=== PATIENT | female | born 1935 | race Hispanic/Latino ===

== ENCOUNTER 2020-01-09 18:32 | Inpatient (IN) | payer MEDICARE, OTHER ==
--- OUTSIDE RECORDS SUMMARY | 2020-01-09 18:35 | XMS REPORT | Continuity of Care Document ---
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, insufficiency , PA Coronary Active Problem 12/24/2017 Shaji atherosclerosis of Priyank contreras, kletsel dehe wintun coronary , PA artery Coronary Active Diagnosis 12/24/2017 Shaji angioplasty status Priyank contreras MD, PA CHF, chronic Active Problem 12/24/2017 Shaji diastolic MD Barry, PA 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 r infarction MD Barry, PA Abnormal ECG Active Problem 12/24/2017 Shaji Reddy MD, PA CAD without angina Active Problem 12/24/2017 Shaji Reddy MD, PA Sick sinus syndrome Active Diagnosis 12/24/2017 Shaji Reddy MD, PA CHF, chronic Active Diagnosis 12/24/2017 Shaji systolic & Barry, diastolic , PA 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 without Madeline an, heart failure , PA Other specified Active Problem 12/24/2017 Naw ar cardiac Barry, dysrhythmias , PA Chronic kidney Active Problem 12/24/2017 Mamtawa r disease, Barry, unspecified , PA Chronic kidney Active Problem 12/24/2017 Nawa r disease, Stage III Priyank contreras (moderate) , PA Postprocedural PCI Active Problem 12/24/2017 Shaji status MD Barry, PA Old myocardial Active Problem 12/24/2017 Mam[place] r infarction MD Barry, PA Benign hypertensive Active Problem 12/24/2017 Shaji heart disease Barry , without heart , PA failure Mixed Active Problem 12/24/2017 Shaji hyperlipidemia Tim giles MD, PA Pulmonary Active Diagnosis 12/24/2017 Shaji hypertension, Barry , unspecified MD PA Hypertensive heart Active Diagnosis 12/24/2017 Shaji and chronic kidney T ben, disease with heart M Paula PA failure and stage 1 through stage 4 chronic kidney disease, or unspecified chronic kidney disease Paroxysmal atrial Active Diagnosis 12/24/2017 N awar fibrillation MD Barry PA Atherosclerotic Active Diagnosis 12/24/2017 Naw ar heart disease of César diehl, kletsel dehe wintun coronary MD PA artery with unspecified angina pectoris Body mass index Active Problem 12/24/2017 Naw ar (BMI) 30.0-30.9, César diehl, adult , PA Obesity, Active Problem 12/24/2017 Shaji unspecified MD Barry, PA Back pain Active Problem 06/29/2015 eCW: Kaisen Fang CHF (congestive Active Problem 06/29/2015 eCW : heart failure) Kaise n Fang Dementia Active Problem 06/29/2015 eCW: Kaisen Fang Pulmonary Active Problem 06/29/2015 eCW: hypertension Kaisen Fang Hypertension with Active Problem 06/29/2015 e CW: renal disease Kaisen Fang Systolic CHF with Active Problem 06/29/2015 e CW: reduced left Kaisen ventricular Fang function, NYHA class 2 Depression with Active Problem 06/29/2015 eCW : anxiety Kaisen Fang CAD (coronary Active Problem 06/29/2015 eCW: artery disease) Naveen en Fang CKD (chronic kidney Active Problem 06/29/2015 eCW: disease) stage 3, Ka isen GFR 30-59 ml/min Fan g Barretts esophagus Active Problem 06/29/2015 eCW: Kaisen Fang Bronchitis Active Diagnosis 06/29/2015 eCW: Kaisen Fang Medications Medication Details Route Status Patient Ordering Order Source Instructions Provider Date Aspirin 1 tablet Orally Active 81 MG Orally [facility] Shaji Once a day 018 MD Barry PA Xarelto 1 tablet Orally Active 15 MG Orally [facility] Shaji with food Once a day 018 MD Barry, PA HydrALAZINE HCl 1 tablet Orally No 10 mg Orally [facility] Na war Longer three times a 016 Barry Active day (tid) CT [facility] Promethazine-Cod 10 ml as Orally Active 6.25-10 MG/5ML Fang eCW: eine needed Orally every 6 016 Kaisen hrs [facility] HydrALAZINE HCl 1 tablet Orally Active 25 MG Orally [facility] eC W: Twice a day [facility] Levaquin 1 tablet Orally Active 500 mg Orally [facility] eCW: Once a day [facility] Albuterol-Ipratr 3 ml Inhalation Active 2.5-0.5 MG/3ML [facility] 06/27 eCW: opium Inhalation 016 [facility] Four times a [facility] day for wheezing Aricept 1 tablet Orally Active 10 mg Orally [facility] eCW: Once a day 014 [facility] Jupiter 1 tablet Orally Active 10-325 MG [facility] eCW: as needed Orally every 6 014 [facility] hrs [facility] Clopidogrel 1 tablet Orally Active 75 mg Orally [facility] eCW: Bisulfate daily [facility] Potassium 1 tablet Orally Active 8 MEQ Orally [facility] eCW: Chloride daily [facility] Lasix 1 tablet Orally Active 20 mg Orally [facility] eCW: Once a day [facility] Os-Tai 500 + D 1 tablet Orally Active 500-400 [facility] eCW: with meals MG-UNIT Orally [facility] Twice a day [facility] Aspirin 1 tablet Orally Active 81 MG Orally [facility] Shaji Once a day MD Barry, PA Robaxin-750 1 tablet Orally Active 750 MG Orally [facility] eCW: every 4 hrs Ifeanyi Meeks MD, PA Pantoprazole 1 tablet Orally Active 40 MG Orally [facility] eCW: Sodium Once a day Ifeanyi Meeks ar MD Barry, PA Potassium 1 capsule Orally Active 8 MEQ Orally [facility] Shaji Chloride daily MD Barry, PA Lisinopril 1 tablet Orally Active 2.5 MG [facility] Once a day MD Barry, PA Aricept 1 tablet Orally Active 10 MG Orally [facility] Shaji at bedtime Once a day MD Barry, PA Plavix 1 tablet Orally Active 75 MG Orally [facility] Shaji Once a day MD Barry, PA Clonazepam 1 tablet Orally Active 0.5 MG Orally [facility] Shaji Twice a day MD Reddy PA Nitrostat 1 tablet Sublingual Active 0.4 MG [facility] Shaji Sublingual as sarah Reddy MD, PA Mirtazapine 1 tablet Orally Active 15 MG Orally [facility] Shaji Once a day MD Reddy PA Jupiter 1 tablet Orally Active 10-325 MG Tayyan Shaji as needed Orally every 6 Tayyan, hrs CT [facility] Lasix 1 tablet Orally Active 20 MG Orally [facility] Shaji Once a day MD Reddy PA Atorvastatin 1 tablet Orally Active 40 MG Orally [facility] Shaji Calcium Once a day MD Reddy PA Nitroglycerin not Sublingual Active 0.4 MG Tayyan Shaji defined Sublingual MD Reddy PA Nitroglycerin not Sublingual Active 0.4 MG Tayyan Shaji defined Sublingual MD Reddy PA Atorvastatin 1 tablet Orally Active 40 MG Orally [facility]yan Shaji Calcium Once a day MD Reddy PA Lasix 1 tablet Orally Active 40 mg Orally Tayyan Shaji twice a day Barry (bid) CT [facility] Clopidogrel 1 tablet Orally Active 75 MG Orally Tayyan Shaji Bisulfate Once a day MD Redyd PA Pantoprazole 1 tablet Orally Active 40 MG Orally [facility] Sodium Once a day MD Reddy PA Methocarbamol 1 tablet Orally Active 750 MG Orally Tayyan Naw ar every 4 hrs MD Reddy PA Aspirin 1 tablet Orally Active 81 MG Orally Tayyan Shaji Once a day MD Reddy PA Acetaminophen-Co 1 tablet Orally Active 300-30 MG Tayyan Nawa r deine #3 as needed Orally every 6 Barry , hrs CT [facility] Lisinopril 1 tablet Orally Active 20 MG Orally Tayyan Shaji Once a day MD Reddy PA Donezepil HCl-10 one tablet orally Active 10 mg orally q Tayyan Shaji mg day MD Reddy PA Mirtazapine 1 tablet Orally Active 15 MG Orally [facility] Shaji Once a day MD Reddy PA Clonazepam 1 tablet Orally Active 0.5 MG Orally [facility] Shaji Twice a day MD Reddy PA Jupiter 1 tablet Orally Active 10-325 MG Tayyan Shaji as needed Orally every 6 Tayfazal, hrs CT [facility] Nitroglycerin Unknown Sublingual Active 0.4 MG Tayyan Shaji Sublingual MD Reddy PA HydrALAZINE HCl 1 tablet by mouth No 10 mg by mouth Fang eCW: Longer three times a Kaisen Active day (tid) Fang Aspirin 1 tablet Orally Active 81 MG Orally Fang eCW: Once a day Kaisen Fang Womens Multi Unknown NA Active Fang eCW: Vitamin & Kaisen Mineral Fang Nitrostat DISSOLVE NA Active 0.4MG Fang eCW: ONE TABLET Kaisen UNDER THE Fang TONGUE AND NEEDED EVERY 5 MINUTES NEEDED Clonazepam 1 tablet Orally Active 1 MG Orally Fang eCW: twice a day Kaisen (bid) Fang Mirtazapine TAKE 1 NA Active 15MG Fang eCW: TABLET Kaisen BEFORE Fang BEDTIME IN THE EVENING ONCE EVERY NIGHT FOR 30 DAYS Atorvastatin 1 tablet by mouth Active 40MG by mouth Fang eCW : Calcium in the Kaisen evening. Fang Allergies, Adverse Reactions, Alerts Substance Category Reaction Severity Reaction Status Date Comments S ource type Reported Beta estrellita Adverse bradycardia Adverse Active eCW: Reaction Reaction 6 Kaisen Fang Lisinopril Adverse renal side Adverse Active eCW: Reaction effects Reaction 6 Kaisen Fang clononidine Adverse sleepy Adverse Active eC W: Reaction Reaction 6 Kaisen Fang NSAID Adverse stomach Adverse Active eCW: Reaction upset Reaction 6 Kaisen Fang N.K.D.A. Adverse Info Not Adverse Active Nawa r Reaction Available Reaction 6 Madeline patterson MD, PA Tylenol/Codei Adverse Info Not Adverse Active Shaji emmanuel #3 Reaction Available Reaction 8 Madeline patterson MD, PA Immunizations No Data Provided for This Section Results No Data Provided for This Section Pathology Reports No Data Provided for This Section Diagnostic Reports No Data Provided for This Section Consultation Notes No Data Provided for This Section Discharge Summaries No Data Provided for This Section History and Physicals No Data Provided for This Section Vital Signs Vital Sign Value Date Comments Source Weight 146 12/22/2017 Shaji Reddy MD, PA Height 61 12/22/2017 Shaji Reddy MD, PA Heart Rate 77 12/22/2017 Shaji Reddy MD, PA Diastolic (mm Hg) 68 12/22/2017 Shaji patterson MD, PA Systolic (mm Hg) 132 12/22/2017 Shaji giles MD, PA Weight 162 08/05/2017 Shaji Reddy MD, PA Heart Rate 96 08/05/2017 Shaji Reddy MD, PA Diastolic (mm Hg) 80 08/05/2017 Shaji patterson MD, PA Systolic (mm Hg) 145 08/05/2017 Shaji giles MD, PA Weight 161 06/28/2017 Shaji Reddy MD, PA Heart Rate 75 06/28/2017 Shaji Reddy MD, PA Diastolic (mm Hg) 80 06/28/2017 Shaji patterson MD, PA Systolic (mm Hg) 140 06/28/2017 Shaji giles MD, PA Weight 156 01/28/2017 Shaji Reddy MD, PA Heart Rate 68 01/28/2017 Shaji Reddy MD, PA Diastolic (mm Hg) 70 01/28/2017 Shaji patterson MD, PA Systolic (mm Hg) 130 01/28/2017 Shaji giles MD, PA Weight 147 07/22/2016 Shaji Reddy MD, PA Heart Rate 52 07/22/2016 Shaji Reddy MD, PA Diastolic (mm Hg) 80 07/22/2016 Shaji patterson MD, PA Systolic (mm Hg) 130 07/22/2016 Shaji giles MD, PA Weight 160 01/23/2016 Shaji Reddy MD, PA Heart Rate 54 01/23/2016 Shaji Reddy MD, PA Diastolic (mm Hg) 65 01/23/2016 Shaji patterson MD, PA Systolic (mm Hg) 120 01/23/2016 Shaji giles MD, PA Weight 150 07/29/2015 Shaji Reddy MD, PA Heart Rate 53 07/29/2015 Shaji Reddy MD, PA Diastolic (mm Hg) 50 07/29/2015 Shaji patterson MD, PA Systolic (mm Hg) 108 07/29/2015 Shaji giles MD, PA Weight 157.5 06/27/2015 eCW: Patricio Turk g Height 59 06/27/2015 eCW: Patricio nolasco Temperature Oral (F) 98.5 F 06/27/2015 eCW: Abril Carrasco Heart Rate 64 06/27/2015 eCW: Patricio nolasco Diastolic (mm Hg) 74 06/27/2015 eCW: Deng Carrasco Systolic (mm Hg) 153 06/27/2015 eCW: Patricio Carrasco Respitory Rate 20 06/27/2015 eCW: Patricio leal Encounters Location Location Encounter Encounter Reason Attending [facility] Stat Source Details Type Number For Provider Date Date Visit Patricio Unknown [id number] 10/27 10/27 Kalina Carrasco MD [id number] /2013 César diehl [id number] , P A c9e Patricio Unknown [id number] 10/27 10/27 Kalina Carrasco MD [id number] /2013 César diehl [id number] , P A 92e Patricio Unknown [id number] 10/27 10/27 eCW: MD Luna eb-[id number]-[id number] /2013 Garret sen [id number] Luna 920 Patricio Unknown [id number] 10/27 10/27 Kalina Carrasco MD [id number] César diehl [id number] , P A 0ae Patricio Follow-up [id number] 11/10 11/10 Mamta Carrasco MD for mutiple 65-3l75-86b /2013 Barry, problems c-[id number] , PA d37 Patricio Follow-up [id number] 11/10 11/10 Mamta Carrasco MD for mutiple 41-6bh8-fqg /2013 Barry, problems 1-h17mbq36p , PA 6e4 Patricio Follow-up [id number] 11/10 11/10 eC W: MD Luna for mutiple 56-1ni5-325 /2013 Abrilisen problems 2-ys500ff38 Burke nolasco 68a Patricio Follow-up [id number] 11/10 11/10 Mamta Carrasco MD for mutiple f8-4dce-942 /2013 Barry, problems d-6ajv482x3 , PA 201 Patricio Follow-up [id number] 01/03 01/03 Mamta Carrasco MD for mutiple 2d-2w11-x33 /2013 Tayfazal, problems 0-hb838y077 , PA 0f4 Kaisen Follow-up [id number] 01/03 01/03 Mamta Carrasco MD for mutiple 92-8m61-99t /2013 Tayfazal, problems 5-q44prlimb , PA 0b1 Kaisen Follow-up [id number] 01/03 01/03 eC W: MD Luna for mutiple ab-4bdc-8f7 /2013 Kaisen problems 2-328orwq59 Burke nolasco dad Kaisen Follow-up [id number] 01/03 01/03 Mamta Carrasco MD for mutiple ec-1vi5-42q /2013 Barry, problems 5-93gmv0j14 , PA b80 Kaisen Follow-up [id number] 03/06 03/06 Mamta Carrasco MD for mutiple ad-6t4w-w75 Barry, problems b-k73e50689 , PA 08e Kaisen Follow-up [id number] 03/06 03/06 Mamta Carrasco MD for mutiple 60-9mv5-7b2 Barry, problems 8-4g3ar76gw , PA 5f8 Kaisen Follow-up [id number] 03/06 03/06 eC W: MD Luna for mutiple 80-4ecb-bc3 Kaisen problems c-[id number] Burke nolasco bbc Kaisen Follow-up [id number] 03/06 03/06 Mamta Carrasco MD for mutiple 7d-23k4-jz6 Barry, problems b-r680d8083 , PA e29 Kaisen Follow-up [id number] 03/09 03/09 Mamta Carrasco MD for mutiple b8-40bb-83a Barry, problems 1-5xox18c37 , PA 229 Kaisen Follow-up [id number] 03/09 03/09 Mamta Carrasco MD for mutiple d8-443f-9bf Tayfazal, problems f-a4683760v , PA 82b Kaisen Follow-up [id number] 03/09 03/09 eC W: MD Luna for mutiple ba-08v4-4i6 /2013 Kaisen problems 4-5631f7cn2 Fan g 862 Kaisen Follow-up [id number] 03/09 03/09 Mamta Carrasco MD for mutiple 2d-4359-9af /2013 Tayfazal, problems a-[id number] , PA 902 Kaisen Follow-up [id number] 04/10 04/10 Mamta Carrasco MD for mutiple 21-4m64-5v5 Tayfazal, problems 1-0616r5279 , PA 710 Kaisen Follow-up [id number]-07 04/10 04/10 Mamta Carrasco MD for mutiple 06-6x11-334 Tayfazal, problems 2-455x88178 , PA 755 Kaisen Follow-up [id number] 04/10 04/10 eC W: MD Luna for mutiple fd-4730-994 Kaisen problems e-405e2ps7d Burke nolasco 0d7 Kaisen Follow-up [id number] 04/10 04/10 Mamta Carrasco MD for mutiple de-41db-a0e /2013 Barry, problems a-kc525up1x , PA 841 Kaisen Sick Visit [id number] 04/27 04/27 N shannon Carrasco MD - Follow up 57-4012-ab4 Barry, for 8-3981f48bt , P A multiple e98 problems Kaisen Sick Visit [id number] 04/27 04/27 N shannon Carrasco MD - Follow up 6b-45be-a04 Barry, for a-765001y83 , P A multiple 784 problems Kaisen Sick Visit [id number] 04/27 04/27 e CW: MD Luna - Follow up d1-4367-a86 /2013 Abrilisen for 6-r2c8l2f8h Luna multiple 565 problems Kaisen Sick Visit [id number] 04/27 04/27 N shannon Carrasco MD - Follow up d3-4255-a6a /2013 Tayfazal, for 4-4p5970482 , P A multiple f26 problems Kaisen Follow-up [id number] 05/29 05/29 Mamta Carrasco MD for mutiple fe-0uk8-lf9 Barry, problems f-426847v2r , PA 2df Kaisen Follow-up [id number] 05/29 05/29 Mamta Carrasco MD for mutiple b3-4818-9e4 /2014 Barry, problems 1-95h47r51d , PA e1b Kaisen Follow-up [id number] 05/29 05/29 eC W: MD Luna for mutiple 38-8zd7-09w Kaisen problems 2-45b8w82z1 Burke nolasco 4b2 Abrilisen Follow-up [id number] 05/29 05/29 Mamta Carrasco MD for mutiple ad-5i8m-y76 Barry, problems c-9w0y54fit , PA a63 Kaisen Follow-up [id number]-[id number] 06/04 06/04 Mamta Carrasco MD for mutiple 81-4802-b96 /2014 Barry, problems a-b8jo37eya , PA 300 Kaisen Follow-up [id number]-ly 06/04 06/04 Mamta Carrasco MD for mutiple 23-6vx0-0h7 /2014 Barry, problems 9-4xn7dm2a2 , PA b8b Kaisen Follow-up [id number] 06/04 06/04 eC W: MD Luna for mutiple 33-3y9b-a48 Kaisen problems e-8l3jf33v1 Burke nolasco b22 Kaisen Follow-up 52y10p91-2d 06/04 06/04 Mamta Carrasco MD for mutiple ac-4400-932 /2014 Tayyan, problems 0-p14063d1j , PA 2dc Kaisen Follow-up [id number] 08/28 08/28 Mamta Carrasco MD for mutiple ae-4eed-a22 /2014 Tayyan, problems 3-21sr1y0ek , PA 09c Kaisen Follow-up [id number] 08/28 08/28 Mamta Carrasco MD for mutiple b6-43ec-b48 /2014 Tayyan, problems 6-4xc4n8707 , PA 5a1 Kaisen Follow-up [id number] 08/28 08/28 eC W: MD Luna for mutiple a8-0v09-980 /2014 Kaisen problems d-2u63f7bi6 Burke nolasco ad8 Kaisen Follow-up [id number] 08/28 08/28 Mamta Carrasco MD for mutiple 37-96b6-817 /2014 Tayyan, problems e-2603xv7d6 , PA e85 Kaisen Follow-up [id number] 09/27 09/27 Mamta Carrasco MD for mutiple 41-0h90-446 Tayyan, problems d-l9xa8m0q4 , PA aa2 Kaisen Follow-up [id number] 09/27 09/27 Mamta Carrasco MD for mutiple 49-2m92-50r /2014 Tayyan, problems c-1b64ml2wt , PA d51 Kaisen Follow-up [id number] 09/27 09/27 eC W: MD Luna for mutiple e7-8zr9-739 /2014 Kaisen problems d-60vq77kbx Burke nolasco b84 Kaisen Follow-up dm8b0ve5-11 09/27 09/27 Mamta Carrasco MD for mutiple 05-441b-a37 /2014 Tayyan, problems 2-xef869o2u , PA 94c Kaisen Refill kkzqo99v-9a 10/10 10/10 hSaji Carrasco MD 7a-47da-bc0 /2014 César fazal, c-e9e15475c , P A 491 Kaisen Refill 95h0i0fm-69 10/10 10/10 Shaji Carrasco MD 34-4737-85e /2014 César diehl, 9-27482mnmn , P A 3fb Kaisen Refill [id number] 10/10 10/10 eCW: MD Luna 13-4184-8a0 /2014 Garret sen c-8pttw3921 Luna cb9 Kaisen Refill hprdj0p7-x8 10/10 10/10 Shaji Carrasco MD 12-8q04-694 /2014 César diehl, c-528er7377 , P A 16f Kaisen Follow-up [id number] 12/11 12/11 Mamta Carrasco MD for mutiple 28-49db-896 /2014 Barry, problems 3-0505f631y , PA 5d4 Kaisen Follow-up [id number] 12/11 12/11 Mamta Carrasco MD for mutiple 2b-4cbc-9a2 /2014 Barry, problems e-p737k0170 , PA cf1 Kaisen Follow-up [id number]-t3 12/11 12/11 eC W: MD Luna for mutiple d5-4984-b62 /2014 Kaisen problems e-91p03oys8 Burke nolasco de6 Kaisen Follow-up 39bj9322-4u 12/11 12/11 Mamta Carrasco MD for mutiple fa-8q67-16n /2014 Barry, problems 2-m51317779 , PA 24b Kaisen Refill 3yw5nui3-o3 12/25 12/25 Shaji Crarasco MD d3-47ba-88e /2014 César diehl, 7-222p93t35 , P A e90 Kaisen Refill [id number] 12/25 12/25 Shaji Carrasco MD c3-4357-a88 /2014 César diehl, 8-y34c2p464 , P A 0ff Kaisen Refill 6d3vq5t3-h6 12/25 12/25 eCW: MD Luna af-4536-b2c /2014 Garret sen 4-9i911025r Fan 736 Kaisen Refill [id number]-36 12/25 12/25 Shaji Carrasco MD 40-6a03-0e7 /2014 César diehl, 7-5gz130663 , P A c35 [facility] Follow-up [id number]-s3 02/12 02/12 Mamta Carrasco MD for mutiple a1-3va6-50d /2014 Barry, problems a-2r4r22ht1 , PA 071 [facility] Follow-up -a4 02/12 02/12 Mamta Carrasco MD for mutiple 15-76w2-5v5 /2014 Barry, problems f-k1w373e01 , PA 79e [facility] Follow-up [id number] 02/12 02/12 eC W: MD Luna for mutiple b7-4ecb-8f9 Kaisen problems b-f1d1tz442 Fan g 479 [facility] Follow-up [id number] 02/12 02/12 Mamta Carrasco MD for mutiple ad-2h32-450 Barry, problems b-n7q747529 , PA a8e [facility] [id number] 03/18 03/18 Naw joi Carrasco MD Follow Up 34-405e-97a Barry, f-5k26209x4 , P A 91a [facility] [id number] 03/18 03/18 Naw joi Carrasco MD Follow Up 12-4872-b19 Barry, 5-y66144177 , P A 924 [facility] [id number]-q3 03/18 03/18 eCW : MD Luna Follow Up fe-493c-bee Abrilisen b-a5j5kl4w9 Burkeg 120 [facility] [id number]-[id number] 03/18 03/18 Na joi Carrasco MD Follow Up 06-1z95-32k Barry, 6-b784980x4 , P A c3b Kaisen Refill [id number]-zw 03/19 03/19 Shaji Carrasco MD b1-3d7v-2ld /2014 César diehl, 4-5yqu26r32 , P A b5e Kaisen Refill a9n29fp1-48 03/19 03/19 Shaji Carrasco MD 2e-491d-8b3 /2014 César diehl, c-lj69z9637 , P A 711 Kaisen Refill [id number]-t1 03/19 03/19 eCW: MD Luna ea-4528-8e5 /2014 Garret sen c-5k253la39 Luna 9e5 Kaisen Refill [id number]-m3 03/19 03/19 Shaji Carrasco MD 84-8y5k-7w6 /2014 César diehl, 2-m83132m5w , P A 111 Kaisen Follow-up [id number] 04/23 04/23 Mamta Carrasco MD for mutiple e2-2a62-860 /2014 Barry, problems e-6n8711f17 , PA d09 Kaisen Follow-up [id number] 04/23 04/23 Mamta Carrasco MD for mutiple ea-38p0-p4b /2014 Barry, problems 2-ta7e01vk8 , PA 232 Kaisen Follow-up [id number] 04/23 04/23 eC W: MD Luna for mutiple f3-4493-a45 /2014 Kaisen problems c-003407s60 Burke nolasco a10 Kaisen Follow-up ir6q66j0-x9 04/23 04/23 jessica Carrasco MD for mutiple 3d-5y86-4g3 /2014 Barry, problems f-ad50b0p49 , PA eba Shaji Follow-Up [id number] 04/24 wentworth Barry, 53-470c-bad /2014 Madeline patterson MD, PA d-19nm8k296 , P A 332 Shaji Follow-Up [id number]-02 04/24 war Barry, 7b-1r2t-59x /2014 Madeline patterson MD, PA 8-h2x7298w6 , P A f3e [facility] Holter [id number] 04/24 04/24 [facility] Césarfazal, monitor d6-06x3-i63 /2014 César diehl MD, PA 7-985y90896 , P A ba7 [facility] Follow-Up [id number] 04/24 04/24 eC W: Césarfazal, 77-4584-950 /2014 Naveen huggins MD, PA 8-ge4o64982 Fang 1b9 [facility] Follow-Up [id number] 04/24 04/24 [facility] Césarfazal, 71-6ig3-w85 /2014 Madeline patterson MD, PA 3-94j797h4v , P A 633 [facility] Holter [id number]-67 04/24 [facility] 40-2r56-122 /2014 César diehl MD, PA 6-x9v1960ac , P A 3db [facility] Holter [id number] 04/24 04/24 eCW: Barry, monitor 91-8q70-3v6 /2014 Garret escoto MD, PA [id number] Fang 97e [facility] Holter [id number] 04/24 04/24 [facility] Césarfazal, monitor cd-45ad-88c /2014 César diehl MD, PA 6-t0a38714y , P A 2f8 [facility] echo/caroti [id number] 04/25 04/25 Shaji Reddy, d/arterial 9c-4ffd-887 /2014 MD Barry, PA dopplers 3-3n82o32hk , PA 055 [facility] echo/caroti [id number]-h6 04/25 04/25 Shaji Reddy, d/arterial 56-473c-b0 /2014 MD Barry, PA dopplers 4-787ucmp5u , PA 672 [facility] echo/caroti [id number]-ge 04/25 04/25 eCW: Barry, d/arterial 4e-16w2-318 /2014 Patricio BHATT, PA dopplers 9-s1cn787hk Fan g e4b Shaji echo/caroti [id number] 04/25 04/25 Shaji Barry, d/arterial 95-3pt0-016 /2014 MD Barry, PA dopplers 8-l5ehq27ba , PA 368 Kaisen Follow-up [id number] 06/27 06/27 Na jessica Carrasco MD for mutiple a2-0s16-405 /2015 Tayfazal, problems e-6566es158 , PA 2dc Kaisen Follow-up w17hpv3m-3e 06/27 06/27 jessica Carrasco MD for mutiple d3-4406-835 /2015 Barry, problems 0-8g53sum2l , PA 11d Kaisen Follow-up [id number]-74 06/27 06/27 eC W: MD Luna for mutiple 62-07t0-21w /2015 Kaisen problems d-q7jk5tl68 Burke nolasco 486 Kaisen Follow-up 3ee94u3m-6e 06/27 06/27 jessica Carrasco MD for mutiple 35-27e2-3rl /2015 Tayfazal, problems 7-p0gj0skhx , PA 21c Shaji Follow-Up [id number] 07/28 07/28 Na war Barry, 91-4608-a29 /2015 Madeline patterson MD, PA d-79q07031r , P A 2a5 [facility] Follow-Up [id number] 07/28 07/28 Na war Barry, [id number] /2015 Madeline patterson MD, PA [id number] , P A 990 [facility] Follow-Up [id number] 07/28 07/28 Na war Barry, [id number] /2015 Madeline patterson MD, PA [id number] , P A 852 [facility] Follow-Up [id number] 01/22 01/22 Na war Barry, [id number] /2015 Madeline patterson MD, PA [id number] , P A 5b9 [facility] Follow-Up [id number] 01/22 01/22 Mamta Reddy, [id number] /2015 Madeline patterson MD, PA [id number] , P A 91c [facility] Follow-Up [id number] 07/22 07/22 Mamta Reddy, [id number] /2016 Madeline patterson MD, PA [id number] , P [place] a47 Procedures No Data Provided for This Section Assessment and Plan No Data Provided for This Section Plan of Care No Data Provided for This Section Social History Social History Date Source Social History ElementQualifiersDate Reported 07/22/2016 Shaji Reddy MD, PA Tobacco Use: . Are you a: never smoker July 22, 2016 Marital Status: . July 22, 2016 Do you drink alcohol? . Status: Yes, Type: Socially July 22, 2016 Social History ElementQualifiersDate Reported 06/27/2015 eCW: Patricio Carrasco Do you take aspirin or a blood thinner drug? . no Soham Ly 03/17/2013 10:40:19 AM > Jun 27, 2015 Tobacco Use: . Are you a: never smoker Jun 27, 2015 Use of recreational / street drugs? . Answer: No Jun 27, 2015 Marital Status: . Soham Ly 03/17/2013 10:40:35 AM > Jun 27, 2015 Caffeine intake? . Status: Yes, What type: Coffee, Tea, Soft Drinks, Chocolate, 1 can/bottle a day Jun 27, 2015 Do you drink alcohol? . Status: No Jun 27, 2015 Family History Value Date Source QualifierDescriptionCommentDate Reported 06/29/2015 eCW: Patricio Carrasco Maternal Grandmother Comment not available Jun 27, 2015 Paternal Grandmother Comment not available Jun 27, 2015 Siblings Comment not available Jun 27, 2015 Maternal Grandfather Comment not available Jun 27, 2015 Father tuberculosis, heart disease, high blood pressure Jun 27, 2015 Mother cancer, heart disease, high blood pressure Jun 27, 2015 Paternal Grandfather Comment not available Jun 27, 2015 Other: diabetes Jun 27, 2015 Advance Directives No Data Provided for This Section Functional Status No Data Provided for This Section
[2020-01-09] MEDS ORDERED: FAMOTIDINE 20 MG/2 ML VIAL IV ONE (19:44)
[2020-01-09] MEDS ORDERED: MORPHINE 2 MG/ML SYR ONE (19:44)
[2020-01-09] MEDS ORDERED: ONDANSETRON 4 MG/2 ML VIAL ONE (19:44)
[2020-01-09 19:53] LABS: Basophils % 0.5 % (0-1.3); Hematocrit 36.2 % (36.0-45.0); MPV 8.7 fL (7.6-11.3); RBC Red Blood Cell Count 4.18 M/uL (3.86-4.86)
[2020-01-09 20:09] LABS: Albumin 3.6 g/dL (3.4-5.0); Bilirubin Direct 0.1 mg/dL (0-0.2); Bilirubin Total 0.4 mg/dL (0.2-1.0); Potassium 3.7 mmol/L (3.5-5.1); Protein, Total 7.8 g/dL (6.4-8.2); Troponin (Emerg Dept Use Only) 0.11 ng/mL (0.0-0.045)
--- NOTE | 2020-01-09 20:22 | RAD REPORT ---
EXAM DESCRIPTION: RAD - Chest Single View - 01/09/2020 7:58 pm CLINICAL HISTORY: CHEST PAIN COMPARISON: None TECHNIQUE: AP portable chest image was obtained 01/09/2020 7:58 pm . FINDINGS: No focal mass consolidation. Interstitial pattern is prominent believed to be baseline fib rosis. Early edema or infiltrate could be masked. Heart and vasculature are normal. No measurable ple ural effusion and no pneumothorax. No acute bony abnormality seen. No acute aortic findings suspected . IMPRESSION: Fibrotic lung pattern without acute cardiopulmonary finding.
--- NOTE | 2020-01-09 21:16 | RAD REPORT ---
EXAM DESCRIPTION: CT - Abdomen Pelvis W Contrast - 01/09/2020 8:59 pm CLINICAL HISTORY: ABD PAIN COMPARISON: No comparisons TECHNIQUE: Biphasic, helical CT imaging of the abdomen and pelvis was performed following 100 ml non -ionic IV contrast. No oral contrast. All CT scans are performed using dose optimization technique as appropriate and may include automated exposure control or mA/KV adjustment according to patient size. FINDINGS: No suspicious findings in the lung bases. Heart size is prominent. No pericardial effusion . Hiatal hernia is present with approximately 20% of the stomach intrathoracic. The liver, spleen, and pancreas show no suspicious findings. Gallbladder is absent. Biliary tree is d ilated. Dilatation is not outside of normal range but can be correlated with any laboratory findings of obstruction. Duct stones can be occult. No pancreatic duct dilatation. Symmetric renal function is seen with no hydronephrosis or suspicious renal mass. No pyelonephritis o r acute parenchymal process. No bladder abnormalities. No adrenal abnormalities. Uterus is absent. Ov jamie are absent or atrophic. No stomach or small bowel acute finding. Moderate stool volume fills but does not dilate the colon fr om cecum to sigmoid colon. Stool distends the rectum to 7 cm diameter. No colon wall thickening or ma ss. No free air, free fluid or inflammatory stranding. No hernia, mass or bulky lymphadenopathy. Disc and bony degenerative changes are present. 20% compression of the T12 body is present appearing old. Dense arterial tree calcifications. IMPRESSION: Large stool volume distending the rectum to 7 cm. There is overall moderate stool volume filling but not dilating the colon. No focal colon wall thickening or mass. No acute GI process. Gallbladder is absent. Biliary tree is dilated. This may simply be the reservoir effect that can occu r after a cholecystectomy. Correlation is needed with any clinical or laboratory findings of biliary obstruction.
[2020-01-09] MEDS ORDERED: CEFTRIAXONE/SWI 1gm 1 GM/10 ML SYR ONE (21:35)
--- NOTE | 2020-01-09 21:35 | EDPHYS ---
Physician Documentation [facility] Name: Marilin Cabral Age: 85 yrs Sex: Female : 1935 Arrival Date: 01/09/2020 Time: 18:38 Bed 17 Private MD: ED Physician Jacinto Barrett HPI: 01/08 19:23 This 85 yrs old Female presents to ER via EMS with complaints of Abdominal mh7 Pain, Nausea/Vomiting. 19:23 The patient presents to the emergency department with nausea, that is moderate, mh7 vomiting, abdominal pain, of the abdomen diffusely, described as intermittent, vague,\E\ waxing and waning, and does not radiate. Onset: The symptoms/episode began/occurred 1 day(s) ago. Possible causes: unknown. The symptoms are aggravated by nothing. Associated signs and symptoms: Pertinent positives: abdominal pain, nausea, vomiting, Pertinent negatives: anorexia, belching, constipation, diarrhea, dysuria, fever, flatulence, GI bleeding, hematuria, vaginal discharge. Severity of symptoms: At their worst the symptoms were moderate today, in the emergency department the symptoms have improved moderately. Historical: - Allergies: 18:55 No Known Allergies; sv - PMHx: 18:55 Hypertension; CHF; sv - Immunization history:: Adult Immunizations up to date. - Social history:: Smoking status: Patient denies any tobacco usage or history of. ROS: 19:23 Constitutional: Negative for fever, chills, and weight loss, Eyes: Negative for injury, mh7 pain, redness, and discharge, ENT: Negative for injury, pain, and discharge, Neck: Negative for injury, pain, and swelling, Respiratory: Negative for shortness of breath, cough, wheezing, and pleuritic chest pain, Back: Negative for injury and pain, : Negative for injury, bleeding, discharge, and swelling, MS/Extremity: Negative for injury and deformity, Skin: Negative for injury, rash, and discoloration, Neuro: Negative for headache, weakness, numbness, tingling, and seizure, Psych: Negative for depression, anxiety, suicide ideation, homicidal ideation, and hallucinations, Allergy/Immunology: Negative for hives, rash, and allergies, Endocrine: Negative for neck swelling, polydipsia, polyuria, polyphagia, and marked weight changes, Hematologic/Lymphatic: Negative for swollen nodes, abnormal bleeding, and unusual bruising. Exam: 19:23 Constitutional: This is a well developed, well nourished patient who is awake, alert, mh7 and in no acute distress. Head/Face: Normocephalic, atraumatic. Eyes: Pupils equal round and reactive to light, extra-ocular motions intact. Lids and lashes normal. Conjunctiva and sclera are non-icteric and not injected. Cornea within normal limits. Periorbital areas with no swelling, redness, or edema. Neck: Trachea midline, no thyromegaly or masses palpated, and no cervical lymphadenopathy. Supple, full range of motion without nuchal rigidity, or vertebral point tenderness. No Meningismus. Chest/axilla: Normal chest wall appearance and motion. Nontender with no deformity. No lesions are appreciated. 19:28 Respiratory: Lungs have equal breath sounds bilaterally, clear to auscultation and mh7 percussion. No rales, rhonchi or wheezes noted. No increased work of breathing, no retractions or nasal flaring. 19:28 Back: No spinal tenderness. No costovertebral tenderness. Full range of motion. Skin: Warm, dry with normal turgor. Normal color with no rashes, no lesions, and no evidence of cellulitis. MS/ Extremity: Pulses equal, no cyanosis. Neurovascular intact. Full, normal range of motion. Neuro: Awake and alert, GCS 15, oriented to person, place, time, and situation. Cranial nerves II-XII grossly intact. Motor strength 5/5 in all extremities. Sensory grossly intact. Cerebellar exam normal. Normal gait. Psych: Awake, alert, with orientation to person, place and time. Behavior, mood, and affect are within normal limits. 19:28 Cardiovascular: Rate: normal, Rhythm: irregularly irregular, Pulses: no pulse deficits are appreciated, Heart sounds: normal, normal S1and S2, Edema: is not appreciated, JVD: is not appreciated. 19:28 Abdomen/GI: Inspection: abdomen appears normal, Bowel sounds: normal, in all quadrants, Palpation: moderate abdominal tenderness, in all quadrants, Rectal exam: the exam is deferred, because of patient request, Indicators: McBurney's point is not tender, Reynaga's sign is negative, Rovsing's sign is negative, Obturator sign is negative, Psoas sign is negative, Liver: no appreciated palpable abnormalities, Hernia: not appreciated. Vital Signs: 18:35 BP 152 / 119; Pulse 88; Resp 15; Temp 98.9; Pulse Ox 100% ; sv 18:45 BP 192 / 77; Pulse 85; Resp 15; Pulse Ox 98% ; sv 19:30 BP 175 / 73; Pulse 65; Resp 18; Pulse Ox 99% on R/A; wh 20:35 BP 167 / 81; Pulse 88; Resp 18; Pulse Ox 99% on R/A; wh 21:45 BP 183 / 78; Pulse 94; Resp 18; Pulse Ox 100% on R/A; wh 22:05 BP 166 / 80; wh 23:00 BP 162 / 77; Pulse 86; Resp 16; Pulse Ox 100% on R/A; MDM: 19:[address] [facility] 21:28 Differential diagnosis: Nonspecific abd pain, gastritis, pancreatitis, diverticulitis, 7 Chest pain, Constipation. Data reviewed: vital signs, nurses notes, lab test result(s), cardiac enzymes, CBC, electrolytes, urinalysis, EKG, radiologic studies, CT scan, plain films. Data interpreted: Pulse oximetry: on room air is 99 %. Interpretation: normal. Counseling: I had a detailed discussion with the patient and/or guardian regarding: the historical points, exam findings, and any diagnostic results supporting the discharge/admit diagnosis, the presence of at least one elevated blood pressure reading (>120/80) during this emergency department visit, lab results, radiology results, the need for further work-up and treatment in the hospital. Response to treatment: the patient's symptoms have markedly improved after treatment. 01/08 19:20 Order name: Basic Metabolic Panel; Complete Time: 20:36 [facility] 01/08 19:20 Order name: CBC with Diff; Complete Time: 20:36 [facility] 01/08 19:20 Order name: Hepatic Function; Complete Time: 20:36 [facility] 01/08 19:20 Order name: Lipase; Complete Time: 20:36 [facility] 01/08 19:20 Order name: Troponin (emerg Dept Use Only); Complete Time: 20:36 [facility] 01/08 19:20 Order name: PROBNP; Complete Time: 20:36 [facility] 01/08 21:02 Order name: Urine Culture 01/08 21:02 Order name: Urine Microscopic Only 01/08 21:51 Order name: Urine Dipstick--Ancillary (enter results) ar5 01/08 21:52 Order name: Urine Dipstick-Ancillary [facility] 01/08 22:05 Order name: Basic Metabolic Panel [facility] 01/08 22:05 Order name: Urinalysis [facility] 01/08 22:05 Order name: Basic Metabolic Panel [facility] 01/08 22:05 Order name: CBC with Automated Diff [facility] 01/08 19:01 Order name: EKG; Complete Time: 19:02 sv 01/08 19:21 Order name: Chest Single View XRAY; Complete Time: 20:36 [facility] 01/08 20:36 Order name: CT Abd/Pelvis - IV Contrast Only; Complete Time: 21:20 7 01/08 22:05 Order name: Regular [facility] 01/08 22:05 Order name: CBC with Automated Diff [facility] 01/08 22:05 Order name: Magnesium [facility] 01/08 22:05 Order name: Magnesium [facility] 01/08 22:05 Order name: Troponin I [facility] 01/08 22:05 Order name: Troponin I [facility] 01/08 22:05 Order name: Troponin I [facility] 01/08 22:05 Order name: Troponin I [facility] 01/08 19:01 Order name: EKG - Nurse/Tech; Complete Time: 19:01 sv 01/08 19:20 Order name: IV Saline Lock; Complete Time: 19:40 7 01/08 19:20 Order name: Labs collected and sent; Complete Time: 19:40 [facility] 01/08 19:20 Order name: Urine Dipstick-Ancillary (obtain specimen); Complete Time: 21:02 7 Administered Medications: 19:43 Drug: Pepcid 20 mg Route: IVP; Site: right antecubital; 20:40 Follow up: Response: No adverse reaction 19:45 Drug: morphine 2 mg {Note: RASS 0.} Route: IVP; Site: right antecubital; 20:40 Follow up: Response: No adverse reaction; Pain is decreased; RASS: Alert and Calm (0) 19:47 Drug: Zofran (Ondansetron) 4 mg Route: IVP; Site: right antecubital; 20:40 Follow up: Response: No adverse reaction; Nausea is decreased 21:29 Drug: Rocephin - (cefTRIAXone) 1 grams Route: IVPB; Infused Over: 30 mins; Site: right antecubital; 22:06 Follow up: Response: No adverse reaction; IV Status: Completed infusion 21:44 Drug: Aspirin Chewable Tablet 324 mg Route: PO; 22:06 Follow up: Response: No adverse reaction Disposition: 01/09 01:46 Co-signature as Attending Physician, Jacinto Barrett MD. [facility] Disposition: 01/09/20 21:35 Hospitalization ordered by Suad Gomez for Inpatient Admission. Preliminary diagnosis are Chest pain, unspecified, Elevated Troponin Level, Abdominal Pain. - Bed requested for Telemetry/MedSurg (Inpatient). - Status is Inpatient Admission. - Condition is Stable. - Problem is new. - Symptoms have improved. Signatures: Dispatcher [employer] EDPreeti Bah RN RN Chava Lamas Reina Miller ar5 Jacinto Barrett MD MD 7 Corrections: (The following items were deleted from the chart) 01/08 22:40 21:35 Hospitalization Ordered by Suad Gomez MD for Inpatient Admission. Preliminary ar5 diagnosis is Chest pain, unspecified; Elevated Troponin Level; Abdominal Pain. Bed requested for Telemetry/MedSurg (Inpatient). Status is Inpatient Admission. Condition is Stable. Problem is new. Symptoms have improved. 7 23:38 22:40 01/09/2020 21:35 Hospitalization Ordered by Suad Gomez MD for Inpatient Admission. Preliminary diagnosis is Chest pain, unspecified; Elevated Troponin Level; Abdominal Pain. Bed requested for Telemetry/MedSurg (Inpatient). Status is Inpatient Admission. Condition is Stable. Problem is new. Symptoms have improved. ar5
--- NOTE | 2020-01-09 21:35 | ER ---
Nurse's Notes [facility] Name: Marilin Cabral Age: 85 yrs Sex: Female : 1935 Arrival Date: 01/09/2020 Time: 18:38 Bed 17 Private MD: Diagnosis: Chest pain, unspecified;Elevated Troponin Level;Abdominal Pain Presentation: 01/08 18:23 Chief complaint: EMS states: called out for abd pain/n/v x 1 day. EKG-Afib w/ RVR. Pt sv was sitting down on arrival and then stood up and started vomiting. 22G R AC Zofran 4 mg IVP BP 140/70 HR-95-105 96% RA. Coronavirus screen: Client denies travel out of the [place] in the last 14 days. nausea, vomiting. Client presents with at least one sign or symptom that may indicate coronavirus-19. Standard/surgical mask placed on the client. Ebola Screen: No symptoms or risks identified at this time. 18:23 Method Of Arrival: EMS: [facility] sv 18:45 Initial Sepsis Screen: Does the patient meet any 2 criteria? No. Patient's initial sv sepsis screen is negative. Does the patient have a suspected source of infection? Yes: Acute abdominal pain. Risk Assessment: Do you want to hurt yourself or someone else? Patient reports no desire to harm self or others. Onset of symptoms was January 08, 2020. 18:45 Acuity: UNA 2 sv Triage Assessment: 18:30 General: Appears in no apparent distress. uncomfortable, well developed, Behavior is sv calm, cooperative, appropriate for age. Pain: Complains of pain in abdomen Pain currently is 5 out of 10 on a pain scale. Neuro: Level of Consciousness is awake, alert, obeys commands, Oriented to person, place, time, situation, Moves all extremities. Full function Speech is normal. Respiratory: Airway is patent Respiratory effort is even, unlabored, Respiratory pattern is regular, symmetrical. GI: Abdomen is round Reports lower abdominal pain, upper abdominal pain, nausea, vomiting. Derm: Skin is normal. Historical: - Allergies: 18:55 No Known Allergies; sv - PMHx: 18:55 Hypertension; CHF; sv - Immunization history:: Adult Immunizations up to date. - Social history:: Smoking status: Patient denies any tobacco usage or history of. Screenin:56 Abuse screen: Denies threats or abuse. Denies injuries from another. Nutritional sv screening: No deficits noted. Tuberculosis screening: No symptoms or risk factors identified. Fall Risk None identified. Assessment: 19:15 General: Appears in no apparent distress. Behavior is calm, cooperative, appropriate wh for age. Pain: Complains of pain in abdomen diffusely Pain does not radiate. Is intermittent. Neuro: Level of Consciousness is awake, alert, obeys commands, Oriented to person, place, time, situation. Cardiovascular: Heart tones S1 S2. Respiratory: Airway is patent Respiratory effort is even, unlabored, Respiratory pattern is regular, symmetrical, Breath sounds are clear bilaterally. GI: Abdomen is flat, non-distended, Bowel sounds present X 4 quads. Abd is soft Abdomen is tender to palpation Reports lower abdominal pain, upper abdominal pain, nausea, vomiting. : No signs and/or symptoms were reported regarding the genitourinary system. EENT: No signs and/or symptoms were reported regarding the EENT system. Derm: Skin is intact, Skin is pink, warm \T\ dry. normal. Musculoskeletal: Circulation, motion, and sensation intact. 20:35 Reassessment: Patient appears in no apparent distress at this time. No changes from wh previously documented assessment. Patient and/or family updated on plan of care and expected duration. Pain level reassessed. Patient is alert, oriented x 3, equal unlabored respirations, skin warm/dry/pink. 21:45 Reassessment: Patient and/or family updated on plan of care and expected duration. Pain wh level reassessed. Patient is alert, oriented x 3, equal unlabored respirations, skin warm/dry/pink. Provider at bedside explaining POC need for admit. 23:00 Reassessment: Patient and/or family updated on plan of care and expected duration. Pain wh level reassessed. Patient is alert, oriented x 3, equal unlabored respirations, skin warm/dry/pink. Patient states feeling better. Vital Signs: 18:35 BP 152 / 119; Pulse 88; Resp 15; Temp 98.9; Pulse Ox 100% ; sv 18:45 BP 192 / 77; Pulse 85; Resp 15; Pulse Ox 98% ; sv 19:30 BP 175 / 73; Pulse 65; Resp 18; Pulse Ox 99% on R/A; wh 20:35 BP 167 / 81; Pulse 88; Resp 18; Pulse Ox 99% on R/A; wh 21:45 BP 183 / 78; Pulse 94; Resp 18; Pulse Ox 100% on R/A; wh 22:05 BP 166 / 80; wh 23:00 BP 162 / 77; Pulse 86; Resp 16; Pulse Ox 100% on R/A; ED Course: 18:30 Patient has correct armband on for positive identification. Placed in gown. Bed in low sv position. Call light in reach. automobile drivers on. Pulse ox on. NIBP on. Door closed. Head of bed elevated. 18:38 Patient arrived in ED. sv 18:38 Preeti Concepcion, SANJIV is Primary Nurse. sv 18:55 Triage completed. sv 18:55 Arm band placed on. sv 18:55 Maintain EMS IV. Dressing intact. Site clean \T\ dry. Gauge \T\ site: 22G R AC. sv 18:57 Awaiting ED provider evaluation. sv 19:02 Jacinto Barrett MD is Attending Physician. 7 19:12 Report given to Chava KINCAID. sv 19:59 Chest Single View XRAY In Process Unspecified. EDMS 20:59 CT Abd/Pelvis - IV Contrast Only In Process Unspecified. EDMS 21:33 Suad Gomez MD is Hospitalizing Provider. [facility] 23:26 No provider procedures requiring assistance completed. Patient admitted, IV remains in place. Administered Medications: 19:43 Drug: Pepcid 20 mg Route: IVP; Site: right antecubital; 20:40 Follow up: Response: No adverse reaction 19:45 Drug: morphine 2 mg {Note: RASS 0.} Route: IVP; Site: right antecubital; 20:40 Follow up: Response: No adverse reaction; Pain is decreased; RASS: Alert and Calm (0) 19:47 Drug: Zofran (Ondansetron) 4 mg Route: IVP; Site: right antecubital; 20:40 Follow up: Response: No adverse reaction; Nausea is decreased 21:29 Drug: Rocephin - (cefTRIAXone) 1 grams Route: IVPB; Infused Over: 30 mins; Site: right antecubital; 22:06 Follow up: Response: No adverse reaction; IV Status: Completed infusion 21:44 Drug: Aspirin Chewable Tablet 324 mg Route: PO; 22:06 Follow up: Response: No adverse reaction Outcome: 21:35 Decision to Hospitalize by Provider. 7 23:26 Admitted to Med/surg accompanied by tech, via wheelchair, room 202, with chart, Report called to Yoana Adhikari RN 23:26 Condition: stable 23:26 Instructed on the need for admit. 23:38 Patient left the ED. Signatures: Dispatcher [employer] Preeti Pinto RN RN Chava Lamas Jacinto Barrett MD MD mh7 Corrections: (The following items were deleted from the chart) 21:59 21:45 BP 186 / 99; Pulse 97bpm; Resp 20bpm; Pulse Ox 100% RA; [facility]
[2020-01-09] MEDS ORDERED: ASPIRIN 81 MG CHEWABLE TABLET ONE (21:52)
[2020-01-09 22:00] LABS: Urine Blood NEGATIVE (NEG); Urine Glucose NEGATIVE (NEG); Urine Protein NEGATIVE (NEG)
[2020-01-09 22:09] LABS: Urine Bacteria <20 /HPF (<20); Urine Culture Reflex Order NOT NEEDED; Urine RBC NONE SEEN /HPF (NONE SEEN)
--- NOTE | 2020-01-09 22:22 | P.HP ---
Certification for Inpatient Patient admitted to: Observation With expected LOS: <2 Midnights Patient will require the following post-hospital care: None Practitioner: I am a practitioner with admitting privileges, knowledge of patient current condition, hospital course, and medical plan of care. Services: Services provided to patient in accordance with Admission requirements found in Title 42 Section 412.3 of the Code of Federal Regulations <TemopatyFredy neal - Last Filed: 01/09/20 22:17> Patient History Date of Service: 01/09/20 Reason for admission: NSTEMI/UTI/abdominal pain/nausea vomit History of Present Illness: A 5-year-old female with a past medical history of CHF and hypertension presents to the emergency room complaining of worsening abdominal pain, nausea vomiting that waxes and wanes. Patient states that yesterday she started feeling chest pain that progressively worsened and turned in the nausea vomiting today. In the ER UA shows positive leukocyte esterase. Patient also has an elevated troponin of 0.11 and a BNP of 1576. Patient states that normally she will take a nitroglycerin pill and that will improve her chest pain. States that she did that today with no improvement. On physical exam patient is alert and oriented x3. She is in no distress. Nausea and vomiting have improved. CT chest abdomen pelvis shows lots of stool, a prominent 20% hiatal hernia and a prominent heart size. Patient will be placed in observation and further evaluated. Home medications list reviewed: No - Past Medical/Surgical History -: Congestive heart fat -: Essential hypertension -: Hysterectomy -: Benign abdominal tumors -: Laparoscopic cholecystectomy Psychosocial/ Personal History: Lives at home with nephew - Family History Family History: Reviewed- Non-Contributory - Social History Smoking Status: Never smoker Alcohol use: No CD- Drugs: No Caffeine use: No Place of Residence: Home <Fredy Esquivel - Last Filed: 01/09/20 22:17> Date of Service: 01/10/20 <Suad Gomez - Last Filed: 01/12/20 12:49> Allergies No Known Allergies Allergy (Verified 01/09/20 23:07) Home Medications: Apixaban [Eliquis] 2.5 mg PO BID 01/10/20 Atorvastatin Calcium 40 mg PO BEDTIME 01/10/20 Calcium Carbonate [Calcium] 500 mg PO DAILY 01/10/20 Clopidogrel Bisulfate [Plavix] 75 mg PO DAILY 01/10/20 Furosemide [Lasix] 40 mg PO BIDL 01/10/20 Isosorbide Mononitrate [Isosorbide Mononitrate ER] 30 mg PO DAILY 01/10/20 Lisinopril [Zestril] 20 mg PO DAILY 01/10/20 Metoprolol Succinate [Toprol Xl] 25 mg PO BID 01/10/20 Nitroglycerin [Nitrostat] 0.4 mg SL SEECOM PRN 01/10/20 Tramadol HCl [Ultram] 50 mg PO Q6HP PRN 01/10/20 Review of Systems General: As per HPI Eyes: Unremarkable ENT: Unremarkable Respiratory: Unremarkable Cardiovascular: Chest Pain Gastrointestinal: Nausea, Vomiting, Abdominal Pain, As per HPI Genitourinary: As per HPI Musculoskeletal: Unremarkable Integumentary: Unremarkable Neurological: Unremarkable Lymphatics: Unremarkable <Fredy Esquivel - Last Filed: 01/09/20 22:17> Physical Examination - Vital Signs Temperature: 98.9 F Blood Pressure: 152/119 Pulse: 88 Respirations: 15 Pulse Ox (%): 100 (RA) - Physical Exam General: Alert, In no apparent distress, Oriented x3 HEENT: Atraumatic, Normocephalic, PERRLA, Mucous membr. moist/pink Neck: Supple, No Thyromegaly, Other (Trachea midline) Respiratory: Clear to auscultation bilaterally, Normal air movement Cardiovascular: No edema, Normal pulses Capillary refill: <2 Seconds Gastrointestinal: Normal bowel sounds, Soft and benign, Non-distended, Tenderness (Mild tenderness with palpation in the lower quadrants) Musculoskeletal: No swelling, No contractures, No erythema Integumentary: No significant lesion, No tenderness/swelling, No erythema Neurological: Normal gait, Normal speech, Normal strength at 5/5 x4 extr, Normal tone - Studies Laboratory Data (last 24 hrs) 01/09/20 19:30: WBC 9.0, Hgb 12.4, Hct 36.2, Plt Count 221 01/09/20 19:30: Sodium 137, Potassium 3.7, BUN 13, Creatinine 1.19, Glucose 128 H, Total Bilirubin 0.4, AST 23, ALT 19, Alkaline Phosphatase 119 H, Lipase 149 <Fredy Esquivel - Last Filed: 01/09/20 22:17> - Studies Microbiology Data (last 24 hrs): 01/09/20 21:00 Clean Catch Urine [place] Count - Final <10,000 CFU/ML. 01/09/20 21:00 Clean Catch Urine - Final No growth. <Suad Gomez Marj - Last Filed: 01/12/20 12:49> Assessment and Plan - Plan Impression: NSTEMI with a history of chronic chest pain on nitroglycerin tablet p.r.n.: Urinary tract infection: Abdominal pain with nausea and vomiting complicated by significant stool seen on CT abdomen pelvis: Essential hypertension: History of chronic congestive heart failure: Plan: NSTEMI with a history of chronic chest pain on nitroglycerin tablet p.r.n.: In the ER patient is noted to have an elevated troponin of 0.11. There is no echocardiogram on record. Will order echocardiogram for the morning. Place on telemetry. Trend troponins. Likely demand ischemia but patient does have nitroglycerin tablets at home that she takes p.r.n. when she has chest pain. She also has a large hiatal hernia. Urinary tract infection: UA positive for leukocyte esterase. States she does have some burning sensation when of awaiting. Will start on IV Rocephin 1 g Q 24 hr. Abdominal pain with nausea and vomiting complicated by significant stool seen on CT abdomen pelvis: Etiology unclear. Patient does have a large amount of stool seen on CT abdomen pelvis. She is also noted to have a large hiatal hernia. Will start on bowel regimen. Continue IV Zofran. Essential hypertension: Will order hydralazine 10 mg q.4 hr p.r.n. for systolic blood pressure greater than 160 and diastolic blood pressure greater than 100. Will resume home medications once verified. History of chronic congestive heart failure: Unknown acuity. Will order echocardiogram. Place on continuous telemetry. Discharge Plan: Home Plan to discharge in: 48 Hours - Advance Directives Does patient have a Living Will: No Does patient have a Durable POA for Healthcare: No - Code Status/Comfort Care Code Status Assessed: Yes Time Spent Managing Pts Care (In Minutes): 55 <Fredy Esquivel - Last Filed: 01/09/20 22:17> Date of Service: 01/10/20 Subjective: Patient was admitted for her chest pain rule out acute coronary syndrome. The patient's initial troponins have been slightly elevated. Patient still having some chest discomfort. Patient be admitted for further evaluation. Physical Examination Vitals: Afebrile vital signs are stable Physical exam is unchanged Diagnostic data has been reviewed ASST: 1. Chest pain rule out acute coronary syndrome 2. Non STEMI 3. Chronic renal insufficiency PLAN: 1. Serial troponins and EKG 2. Appreciate Cardiology consultation 3. Echocardiogram and possible cardiac catheterization 4. Anti-platelet therapy, anti coagulation, beta-estrellita, statin, and O2 as needed 5. IV morphine for pain 6. Nitro p.r.n. <Suad Gomez - Last Filed: 01/12/20 12:49>
[2020-01-09] MEDS ORDERED: ONDANSETRON 4 MG/2 ML VIAL IV PRN ×2 (22:31→23:28)
[2020-01-09] MEDS ORDERED: HYDRALAZINE HCL 20 MG/ML VIAL IV PRN (22:32)
[2020-01-09] MEDS ORDERED: DOCUSATE NA/SENNA CONC 1 TAB PO PRN (22:34)
[2020-01-09] MEDS: NA CHLORIDE 0.9% 1,000 ML IV SCH (23:00)
[2020-01-10 02:02] VITALS: BMI 25.7
[2020-01-10 04:42] LABS: Absolute Lymphocytes (CBC) 1.3 K/uL (0.7-4.9); Basophils % 0.5 % (0-1.3); Lymphocytes % 11.3 % (15.3-44.8); MPV 8.9 fL (7.6-11.3); RBC Red Blood Cell Count 4.27 M/uL (3.86-4.86)
[2020-01-10 04:43] LABS: Magnesium 2.2 mg/dL (1.8-2.4); Potassium 4.6 mmol/L (3.5-5.1)
--- NOTE | 2020-01-10 07:33 | EKG ---
Test Date: 2020-01-09 Test Time: 18:32:56 Shed Boss: JORGE L MEASUREMENT RESULTS: Intervals: Rate: 92 OH: 158 QRSD: 96 QT: 362 QTc: 447 [place]: P: 84 OH: 158 QRS: 48 T: -89 INTERPRETIVE STATEMENTS: Sinus rhythm with premature supraventricular complexes Left ventricular hypertrophy with repolarization abnormality Possible Inferior infarct, age undetermined Abnormal ECG No previous ECG available for comparison Electronically Signed On 01-10-20 07:32:28 CDT by Arik Newell
[2020-01-10] MEDS: NA CHLORIDE 0.9% 1,000 ML IV SCH ×2 (08:09→20:11)
[2020-01-10] MEDS ORDERED: ENOXAPARIN 30 MG/0.3 ML SQ SCH (09:00)
[2020-01-10] MEDS ORDERED: ENOXAPARIN 40 MG/0.4 ML SQ SCH (09:00)
--- NOTE | 2020-01-10 14:34 | ECHO ---
HEIGHT: 5 ft 0 in WEIGHT: 132 lb 1.6 oz DATE OF STUDY: 01/10/[address]: Fredy Esquivel 2-DIMENSIONAL: YES M.MODE: YES DOPPLER: YES COLOR FLOW: YES TDS: PORTABLE: DEFINITY: BUBBLE STUDY: DIAGNOSIS: CHEST PAIN CARDIAC HISTORY: CATHERIZATION: NO SURGERY: NO PROSTHETIC VALVE: NO PACEMAKER: NO MEASUREMENTS (cm) DIASTOLIC (NORMALS) SYSTOLIC (NORMALS) IVSd 0.9 (0.6-1.2) LA Diam 4.2 (1.9-4.0) LVEF 58% LVIDd 4.4 (3.5-5.7) LVIDs 31 (2.0-3.5) %FS 30% LVPWd 1.0 (0.6-1.2) Ao Diam 2.6 (2.0-3.7) 2 DIMENSIONAL ASSESSMENT: RIGHT ATRIUM: NORMAL LEFT ATRIUM: NORMAL RIGHT VENTRICLE: NORMAL LEFT VENTRICLE: NORMAL TRICUSPID VALVE: NORMAL MITRAL VALVE: MITRAL ANNULAR CALCIFICATION PULMONIC VALVE: NORMAL AORTIC VALVE: SCLEROSIS PERICARDIAL EFFUSION: NONE AORTIC ROOT: NORMAL LEFT VENTRICULAR WALL MOTION: NORMAL DOPPLER/COLOR FLOW: NORMAL COMMENTS: NORMAL EJECTION FRACTION AND LEFT VENTRICULAR SIZE. MITRAL ANNULAR CALCIFICATION. AORTIC STENOSIS. NO EFFUSION. TECHNOLOGIST: PHUONG COHEN
[2020-01-10] MEDS ORDERED: TRAMADOL HCL 50 MG TAB PO PRN (14:38)
[2020-01-10] MEDS: FUROSEMIDE 40 MG TABLET PO SCH (16:19)
[2020-01-10 16:38] LABS: Urine Appearance CLEAR; Urine Bilirubin NEGATIVE (NEG); Urine Blood NEGATIVE (NEG); Urine Color YELLOW; Urine Glucose NEGATIVE (NEG); Urine Protein NEGATIVE (NEG); Urine Specific Gravity 1.015 (1.005-1.030); Urine pH 6.5 (5.0-7.0)
[2020-01-10 16:39] LABS: Urine Microscopic Reflex ORDER UMIC
[2020-01-10 16:53] LABS: Urine Bacteria <20 /HPF (<20); Urine Culture Reflex Order REFLEXED; Urine Mucus 1+ /HPF (NONE SEEN); Urine RBC <5 /HPF (NONE SEEN)
[2020-01-10] MEDS: CEFTRIAXONE/SWI 1gm 1 GM/10 ML SYR IV SCH (20:13)
[2020-01-10] MEDS: ATORVASTATIN 40 MG TAB PO SCH (20:13)
[2020-01-10] MEDS: METOPROLOL XL 25 MG TAB PO SCH (20:28)
[2020-01-10] MEDS ORDERED: APIXABAN 2.5 MG TABLET PO SCH (21:00)
--- NOTE | 2020-01-11 01:28 | CON ---
Date of Consultation: 01/10/2020 Reason For Consultation: [id number] myocardial infarction. History Of Present Illness: Ms. Cabral is an 85-year-old woman who has a history of hypertension a nd CHF, has had a history of atrial fibrillation in the past. She is actually much younger than her stated age as far as the way she looks or acts. Very physically active. Came in with midepigastric and substernal chest pain with nausea and vomiting. She had a troponin of 0.16. Her BNP was 1576. She continued to have chest pain with exertion. Her Eliquis has been held. She has been placed on L ovenox. Denied any PND, orthopnea, pedal edema, palpitation, or syncope. She denied any fever or ch ills. Allergies: NONE. Past Medical History: Hypertension and chronic diastolic congestive heart failure. Review of Systems: Negative. Social History: Negative. Family History: Noncontributory. Medications: At home include Lasix, Eliquis, Lipitor, Plavix, metoprolol, Imdur, and lisinopril. Physical Examination: General: She appeared younger than her stated age. She was in atrial fibrillation at a rate of 69. Blood pressure was 160/70. Mild distress from chest pain. HEENT: Negative. Neck: Supple with no bruit. Chest: Clear. Cardiac: Revealed atrial fibrillation. No murmurs, gallops, or rubs. Abdomen: Benign. Extremities: Revealed no clubbing, cyanosis, or edema. Neurologic: She was nonfocal. Pulses were present distally bilaterally. Skin: Dry and intact. Diagnostic Data: Troponin was 0.16. BNP was 1576. White count was 12,000. EKG shows sinus rhythm, PVCs, and LVH. Impression And Plan: 1.Non-ST elevation myocardial infarction. 2.Chronic atrial fibrillation, on Eliquis, that has maksim held. Lovenox has been given. 3.Hypertension. 4.Acute on chronic diastolic congestive heart failure. History Of Present Illness: Ms. Cabral continues to have substernal chest pain with some nausea wi th exertion. I think with her risk factors and with her previous history and with her troponin eleva tion, a left heart catheterization is indicated. The case was discussed with her. She understands t he risk and the benefit of the procedure. She agrees to proceed. Echocardiogram is pending. We marlee agarwal continue to follow her. EFREN/KASEY Voice ID: [id number] Report ID: [id number]
[2020-01-11] MEDS: NA CHLORIDE 0.9% 1,000 ML IV SCH ×3 (06:07→16:10)
[2020-01-11] MEDS: METOPROLOL XL 25 MG TAB PO SCH ×2 (06:12→20:24)
[2020-01-11] MEDS: CLOPIDOGREL 75 MG TABLET PO SCH (06:13)
[2020-01-11] MEDS: lisinopriL 20 MG TAB PO SCH (08:58)
[2020-01-11] MEDS: CALCIUM CARBONATE 500 MG TAB PO SCH (08:58)
[2020-01-11] MEDS: FUROSEMIDE 40 MG TABLET PO SCH ×2 (08:58→16:11)
[2020-01-11] MEDS: ISOSORBIDE MONO SR 30 MG TAB PO SCH (08:58)
--- NOTE | 2020-01-11 09:28 | PN ---
Date of Progress Note: 01/11/2020 Subjective: Ms. Cabral was set up for a heart catheterization today because of non-STEMI. She had come in with chest pain, abdominal pain, and a UTI. She has not had any chest pain overnight. Unfo rtunately, she was given her Eliquis last night by the nurse despite the fact that this was to be hel d verbally. Her catheterization will be postponed until 01/12/2020. Today, she is doing well. She is in atrial fibrillation, which is chronic. Objective: Vital Signs: Her pulse is 66. Her blood pressure is 144/67. She is afebrile. Her O2 s aturation is 100% on room air. Her I's and O's are adequate. Laboratory Data: Her last creatinine was 1.21. Her last troponin was 0.17. Impression And Plan: Wez-BX-ubiyajbcr myocardial infarction. Received Eliquis yesterday. We will m giselle sure this is stopped. We will give her last dose of Lovenox today. We will plan the catheteriza tion for tomorrow morning. Her other issues including dyslipidemia, hypertension and atrial fibrilla tion are stable. Her rate for atrial fibrillation is well controlled. EFREN/KASEY Voice ID: [id number] Report ID: [id number]
[2020-01-11] MEDS: PREGABALIN 75 MG CAP PO SCH ×2 (16:11→20:23)
[2020-01-11] MEDS ORDERED: PREGABALIN 75 MG CAP PO SCH (17:00)
[2020-01-11] MEDS: ATORVASTATIN 40 MG TAB PO SCH (20:23)
[2020-01-11] MEDS: CEFTRIAXONE/SWI 1gm 1 GM/10 ML SYR IV SCH (20:23)
[2020-01-12] MEDS: NA CHLORIDE 0.9% 1,000 ML IV SCH ×2 (02:05→11:00)
[2020-01-12] MEDS ORDERED: ATROPINE SULF 1 MG/10 ML SYR IV ONE (06:56)
[2020-01-12] MEDS ORDERED: LIDOCAINE 1% 20 ML MDV ONE (06:56)
[2020-01-12] MEDS ORDERED: NA CHLORIDE 0.9% 0 ML ONE (06:56)
[2020-01-12] MEDS ORDERED: HEPA 1000U/500MLS 1,000 UNIT/500 ML BAG IV ONE (06:56)
[2020-01-12] MEDS ORDERED: FENTANYL CITR 100 MCG/2 ML ONE (07:21)
[2020-01-12] MEDS ORDERED: MIDAZOLAM HCL 2 MG/2 ML INJ ONE (07:21)
[2020-01-12] MEDS: PREGABALIN 75 MG CAP PO SCH (09:00)
[2020-01-12] MEDS: CALCIUM CARBONATE 500 MG TAB PO SCH (09:54)
[2020-01-12] MEDS: FUROSEMIDE 40 MG TABLET PO SCH (09:54)
[2020-01-12] MEDS: lisinopriL 20 MG TAB PO SCH (09:55)
[2020-01-12] MEDS: CLOPIDOGREL 75 MG TABLET PO SCH (09:56)
[2020-01-12] MEDS: ISOSORBIDE MONO SR 30 MG TAB PO SCH (09:59)
[2020-01-12] MEDS: METOPROLOL XL 25 MG TAB PO SCH (11:56)
[2020-01-12 12:14] VITALS: O2SAT 97
--- NOTE | 2020-01-12 12:50 | P.PN ---
Subjective Date of Service: 01/10/20 Patient still some chest discomfort and generalized weakness. Troponins are remaining elevated so planning on a cardiac catheterization Review of Systems 10-point ROS is otherwise unremarkable Physical Examination - Vital Signs Temperature: 97.0 F Blood Pressure: 126/58 Pulse: 65 Respirations: 16 Pulse Ox (%): 96 - Physical Exam General: Alert, In no apparent distress, Oriented x3 Respiratory: Clear to auscultation bilaterally, Normal air movement Cardiovascular: Regular rate/rhythm, Normal S1 S2, Systolic murmur Gastrointestinal: Normal bowel sounds, Soft and benign, Non-distended, No tenderness Musculoskeletal: No clubbing, No swelling, No tenderness Neurological: Sensation intact, Cranial nerves 3-12 intact - Studies Microbiology Data (last 24 hrs): 01/09/20 21:00 Clean Catch Urine [place] Count - Final <10,000 CFU/ML. 01/09/20 21:00 Clean Catch Urine - Final No growth. Medications List Reviewed: Yes Assessment & Plan - Problems (Diagnosis) (1) Chest pain, rule out acute myocardial infarction Current Visit: Yes Status: Acute (2) Non-STEMI (non-ST elevated myocardial infarction) Current Visit: Yes Status: Acute (3) Chronic renal insufficiency Current Visit: Yes Status: Acute - Plan 1. Serial troponins and EKG 2. Appreciate Cardiology consultation 3. Echocardiogram and schedule cardiac catheterization for Wednesday 4. Anti-platelet therapy, anti coagulation, beta-estrellita, statin, and O2 as needed 5. IV morphine for pain 6. Nitro p.r.n. 7. Monitor renal function Discharge Plan: Home Plan to discharge in: Greater than 2 days - Advance Directives Does patient have a Living Will: Yes Does patient have a Durable POA for Healthcare: No - Code Status/Comfort Care Code Status Assessed: Yes Code Status: Full Code Critical Care: No Time Spent Managing PTS Care (In Minutes): 30
--- NOTE | 2020-01-12 12:52 | P.PN ---
Subjective Date of Service: 01/11/20 Patient doing better. Some her symptoms are improving but she still has some weakness and shortness of breath. Plan for cardiac catheterization the morning. Review of Systems 10-point ROS is otherwise unremarkable Physical Examination - Vital Signs Temperature: 97.0 F Blood Pressure: 126/58 Pulse: 65 Respirations: 16 Pulse Ox (%): 96 - Physical Exam General: Alert, In no apparent distress, Oriented x3 Respiratory: Clear to auscultation bilaterally, Normal air movement Cardiovascular: Regular rate/rhythm, Normal S1 S2, No murmurs Gastrointestinal: Normal bowel sounds, Soft and benign, Non-distended, No tenderness Musculoskeletal: No tenderness Integumentary: No rashes Neurological: Normal strength at 5/5 x4 extr, Normal tone, Sensation intact, Cranial nerves 3-12 intact, Normal affect Lymphatics: No axilla or inguinal lymphadenopathy - Studies Microbiology Data (last 24 hrs): 01/09/20 21:00 Clean Catch Urine [place] Count - Final <10,000 CFU/ML. 01/09/20 21:00 Clean Catch Urine - Final No growth. Medications List Reviewed: Yes Assessment & Plan - Problems (Diagnosis) (1) Chest pain, rule out acute myocardial infarction Current Visit: Yes Status: Acute (2) Non-STEMI (non-ST elevated myocardial infarction) Current Visit: Yes Status: Acute (3) Chronic renal insufficiency Current Visit: Yes Status: Acute - Plan Plan of care as mentioned below 1. Troponins were elevated and EKG with nonspecific ST T wave changes 2. Appreciate Cardiology consultation 3. Echocardiogram reviewed and schedule cardiac catheterization for Wednesday 4. Anti-platelet therapy, anti coagulation, beta-estrellita, statin, and O2 as needed 5. IV morphine for pain 6. Nitro p.r.n. 7. Monitor renal function Discharge Plan: Home Plan to discharge in: Greater than 2 days - Advance Directives Does patient have a Living Will: Yes Does patient have a Durable POA for Healthcare: No - Code Status/Comfort Care Code Status: Full Code Critical Care: No Time Spent Managing PTS Care (In Minutes): 30
--- NOTE | 2020-01-12 12:55 | P.DS ---
Discharge Date: 01/12/20 Disposition: ROUTINE DISCHARGE Discharge Condition: GOOD Reason for Admission: NSTEMI/UTI/abdominal pain/nausea vomit Consultations: Cardiology - Problems (1) Chest pain, rule out acute myocardial infarction Current Visit: Yes Status: Acute (2) Non-STEMI (non-ST elevated myocardial infarction) Current Visit: Yes Status: Acute (3) Chronic renal insufficiency Current Visit: Yes Status: Acute Brief History of Present Illness: A 85-year-old female with a past medical history of CHF and hypertension presents to the emergency room complaining of worsening abdominal pain, nausea vomiting that waxes and wanes. Patient states that yesterday she started feeling chest pain that progressively worsened and turned in the nausea vomiting today. In the ER UA shows positive leukocyte esterase. Patient also has an elevated troponin of 0.11 and a BNP of 1576. Patient states that normally she will take a nitroglycerin pill and that will improve her chest pain. States that she did that today with no improvement. On physical exam patient is alert and oriented x3. She is in no distress. Nausea and vomiting have improved. CT chest abdomen pelvis shows lots of stool, a prominent 20% hiatal hernia and a prominent heart size. Patient will be placed in observation and further evaluated. Hospital Course: Patient was taken to the cardiac catheterization lab which revealed mild atherosclerotic disease. No intervention necessary. Echocardiogram did not reveal any abnormalities. Renal function has remained stable. At this time, patient is stable for discharge home. Vital Signs/Physical Exam: Temp Pulse Resp BP Pulse Ox 97.0 F 65 16 126/58 L 96 01/12/20 12:52 01/12/20 12:52 01/12/20 12:52 01/12/20 12:52 01/12/20 12:52 General: Alert, In no apparent distress, Oriented x3 Respiratory: Normal air movement Cardiovascular: Regular rate/rhythm, Normal S1 S2 Laboratory Data at Discharge: WBC 11.9 K/uL (4.3-10.9) H D 01/10/20 04:05 Hgb 12.5 g/dL (12.0-15.0) 01/10/20 04:05 Hct 37.0 % (36.0-45.0) 01/10/20 04:05 Plt Count 230 K/uL (152-406) 01/10/20 04:05 Sodium 138 mmol/L (136-145) 01/10/20 04:05 Potassium 4.6 mmol/L (3.5-5.1) 01/10/20 04:05 BUN 13 mg/dL (7-18) 01/10/20 04:05 Creatinine 1.21 mg/dL (0.55-1.3) 01/10/20 04:05 Glucose 112 mg/dL (74-106) H 01/10/20 04:05 Magnesium 2.2 mg/dL (1.8-2.4) 01/10/20 04:05 Total Bilirubin 0.4 mg/dL (0.2-1.0) 01/09/20 19:30 AST 23 U/L (15-37) 01/09/20 19:30 ALT 19 U/L (12-78) 01/09/20 19:30 Alkaline Phosphatase 119 U/L (45-117) H 01/09/20 19:30 Troponin I 0.17 ng/mL (0.0-0.045) H 01/10/20 19:29 Lipase 149 U/L (73-393) 01/09/20 19:30 Home Medications: Apixaban [Eliquis *] 2.5 mg PO BID 01/10/20 Atorvastatin Calcium 40 mg PO BEDTIME 01/10/20 Calcium Carbonate [Calcium] 500 mg PO DAILY 01/10/20 Clopidogrel Bisulfate [Plavix*] 75 mg PO DAILY 01/10/20 Furosemide [Lasix] 40 mg PO BIDL 01/10/20 Isosorbide Mononitrate [Isosorbide Mononitrate ER] 30 mg PO DAILY 01/10/20 Lisinopril [Zestril] 20 mg PO DAILY 01/10/20 Metoprolol Succinate [Toprol Xl*] 25 mg PO BID 01/10/20 Nitroglycerin [Nitrostat*] 0.4 mg SL SEECOM PRN 01/10/20 Tramadol HCl [Ultram] 50 mg PO Q6HP PRN 01/10/20 Pregabalin [Lyrica*] 75 mg PO BID #60 cap 01/12/20 traMADol HCL [Ultram*] 50 mg PO Q6HP PRN #30 tab 01/12/20 New Medications: Pregabalin [Lyrica*] 75 mg PO BID #60 cap traMADol HCL [Ultram*] 50 mg PO Q6HP PRN #30 tab PRN Reason: Pain Scale 5-7 (Moderate) Patient Discharge Instructions: OK TO DC IV AND DC HOME. FOLLOW-UP WITH PRIMARY CARE PROVIDER IN 1-2 WEEKS. FOLLOW-UP WITH CARDIOLOGY IN 1-2 WEEKS. RETURN TO THE ER IF symptoms worsen. CALL or TEXT DR. SHAH AT [phone] IF ANY QUESTIONS REGARDING HOSPITAL STAY. PLEASE CALL THE FLOOR AT [phone] IF ANY MEDICATION OR NURSING QUESTIONS. Diet: AHA Activity: Fall precautions Time spent managing pt's care (in minutes): 30
[2020-01-12 15:56] VITALS: BP 149/65; TEMP 98.2
--- NOTE | 2020-01-13 02:12 | OP ---
Date of Procedure: 01/12/2020 Surgeon: Arik Newell MD Die Maker: Agnes Brar. Procedure: Left heart catheterization with selective coronary arteriogram. Indication: [id number] myocardial infarction and chest pain. Description Of Procedure: Ms. Cabral was brought to the [facility] today as an inpatient. She was p repped and draped in routine sterile fashion. She was given Versed for sedation. Using the Seldinge r technique, 10 cc of Xylocaine was injected in the right groin area. A 6-Tunisian sheath was introduc ed successfully. Angiography there was normal. Angio-Seal was used to close the case. 6-Tunisian cat heters, JL4 and JR4, were used to select the left main and right main respectively. The patient had minimal plaquing in the LAD, circumflex, and RCA. She was right dominant. There was no focal stenos is. The patient tolerated the procedure well. There were no complications. Blood Loss: 5 cc. Anesthesia: Total conscious sedation was 30 minutes. Final Diagnosis: Minimal coronary artery disease. Plan: Plan is for medical therapy. Plan: Plan is for her to have bedrest for 2 hours and then she can go home today on her home medicat ion. She was in chronic atrial fibrillation during the procedure with rate control and she should ge t back on her Eliquis tomorrow. I would like to see her in the office in the next week or two. EFREN/KASEY Voice ID: [id number] Report ID: [id number]
[2020-01-13] MEDS ORDERED: APIXABAN 2.5 MG TABLET PO SCH (09:00)
== END 2020-01-12 16:49 | disposition home or self-care (01) | DRG 280 ==
LOC: ER 18:32 → ERHOLD 22:01 → 2ND 23:26 → OBSVTOIN 01-11 08:01
PROVIDERS: ADMIT Hospitalist; ATTEND Hospitalist
PROC: 4A023N7 Measurement of Cardiac Sampling and Pressure, Left Heart, Percutaneous Approach (ICD-10-PCS; principal; 2020-01-12)
PROC: B2111ZZ Fluoroscopy of Multiple Coronary Arteries using Low Osmolar Contrast (ICD-10-PCS; 2020-01-12)
DX: I21.4 Non-ST elevation (NSTEMI) myocardial infarction (principal); I50.33 Acute on chronic diastolic (congestive) heart failure; N39.0 Urinary tract infection, site not specified; I48.20 Chronic atrial fibrillation, unspecified; I13.0 Hypertensive heart and chronic kidney disease with heart failure and stage 1 through stage 4 chronic kidney disease, or unspecified chronic kidney disease; I25.10 Atherosclerotic heart disease of native coronary artery without angina pectoris; N18.9 Chronic kidney disease, unspecified; E78.5 Hyperlipidemia, unspecified; K44.9 Diaphragmatic hernia without obstruction or gangrene; Z90.710 Acquired absence of both cervix and uterus; Z90.49 Acquired absence of other specified parts of digestive tract; Z79.01 Long term (current) use of anticoagulants; Z79.02 Long term (current) use of antithrombotics/antiplatelets; Z79.899 Other long term (current) drug therapy; Z11.59 Encounter for screening for other viral diseases
CPT/HCPCS: 36415; 71045; 74177; 80048; 80076; 81003; 81015; 83690; 83735; 83880; 84484; 85025; 87086; 87088; 93005; 93306; 93454; 96365; 96375; 99285; C1760; C1893; G0378; J0360; J0583; J0696; J1644; J1650; J2250; J2270; J2405; J3010; J7030; Q9967; U0002

== ENCOUNTER 2020-02-08 14:57 | Emergency (ER) | payer MEDICARE ==
--- OUTSIDE RECORDS SUMMARY | 2020-02-08 15:11 | XMS REPORT | Continuity of Care Document ---
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, insufficiency , PA Coronary Active Problem 12/24/2017 Shaji atherosclerosis of Priyank contreras, [place] coronary , [place] artery Coronary Active Diagnosis [...] Naw ar heart disease of César diehl, [place] coronary MD PA artery with unspecified angina [...] 1 tablet Orally Active 81 MG Orally [facility] Shaji Once a day 018 MD Barry PA Xarelto 1 tablet Orally Active 15 MG Orally [facility] Shaji with food Once a day 018 MD Barry, PA HydrALAZINE HCl 1 tablet Orally No 10 mg Orally [facility] Na war Longer three times a 016 Barry Active day (tid) CT [facility] Promethazine-Cod 10 ml as Orally Active 6.25-10 MG/5ML Fang eCW: eine needed Orally every 6 016 Kaisen hrs [facility] HydrALAZINE HCl 1 tablet Orally Active 25 MG Orally [facility] eC W: Twice a day [facility] Levaquin 1 tablet Orally Active 500 mg Orally [facility] eCW: Once a day [facility] Albuterol-Ipratr 3 ml Inhalation Active 2.5-0.5 MG/3ML [facility] 06/27 eCW: opium Inhalation 016 [facility] Four times a [facility] day for wheezing Aricept 1 tablet Orally Active 10 mg Orally [facility] eCW: Once a day 014 [facility] Conrad 1 tablet Orally Active 10-325 MG [facility] eCW: as needed Orally every 6 014 [facility] hrs [facility] Clopidogrel 1 tablet Orally Active 75 mg Orally [facility] eCW: Bisulfate daily [facility] Potassium 1 tablet Orally Active 8 MEQ Orally [facility] eCW: Chloride daily [facility] Lasix 1 tablet Orally Active 20 mg Orally [facility] eCW: Once a day [facility] Os-Tai 500 + D 1 tablet Orally Active 500-400 [facility] eCW: with meals MG-UNIT Orally [facility] Twice a day [facility] Aspirin 1 tablet Orally Active 81 MG Orally [facility] Shaji Once a day MD Barry, PA Robaxin-750 1 tablet Orally Active 750 MG Orally [facility] eCW: every 4 hrs Ifeanyi Meeks MD, PA Pantoprazole 1 tablet Orally Active 40 MG Orally [facility] eCW: Sodium Once a day Ifeanyi Meeks ar MD Barry, PA Potassium 1 capsule Orally Active 8 MEQ Orally [facility] Shaji Chloride daily MD Barry, PA Lisinopril 1 tablet Orally Active 2.5 MG Orally [facility] Shaji Once a day MD Barry, PA Aricept 1 tablet Orally Active 10 MG Orally [facility] Shaji at bedtime Once a day MD Barry, PA Plavix 1 tablet Orally Active 75 MG Orally [facility] Shaji Once a day MD Barry, PA Clonazepam 1 tablet Orally Active 0.5 MG Orally [facility] Shaji Twice a day MD Reddy PA Nitrostat 1 tablet Sublingual Active 0.4 MG [facility] Shaji Sublingual as sarah Reddy MD, PA Mirtazapine 1 tablet Orally Active 15 MG Orally [facility] Shaji Once a day MD Reddy PA Conrad 1 tablet Orally Active 10-325 MG [facility] [...] [facility] Shaji Bisulfate Once a day MD Reddy PA Pantoprazole 1 tablet Orally Active 40 MG Orally [facility] Shaji Sodium Once a day MD Reddy PA Methocarbamol 1 tablet Orally Active 750 MG Orally [facility] Naw ar every 4 hrs MD Reddy PA Aspirin 1 tablet Orally Active 81 MG Orally [facility] Shaji Once a day MD Reddy PA Acetaminophen-Co 1 tablet Orally Active 300-30 MG [facility] Nawa r deine #3 as needed Orally every 6 Barry , hrs CT [facility] Lisinopril 1 tablet Orally Active 20 MG [...] Shaji Twice a day MD Reddy PA Conrad 1 tablet Orally Active 10-325 MG [facility] [...] MD, PA Heart Rate 77 12/22/2017 Shaji Rdedy MD, PA Diastolic (mm Hg) 68 12/22/2017 [...] MD, PA Diastolic (mm Hg) 70 01/28/2017 hSaji patterson MD, PA Systolic (mm Hg) 130 [...] MD, PA Diastolic (mm Hg) 65 01/23/2016 Shaij patterson MD, PA Systolic (mm Hg) 120 [...] Encounters Location Location Encounter Encounter Reason Attending [facility] Stat Source Details Type Number For Provider Date Date Visit Patricio Unknown [id number] 10/27 10/27 Kalina Carrasco MD [id number] /2013 César diehl [id number] , P A c9e Patricio Unknown [id number] 10/27 10/27 Kalina Carrasco MD [id number] /2013 César diehl [id number] , P A 92e Patricio Unknown [id number] 10/27 10/27 eCW: MD Luna [id number] /2013 Garret sen [id number] Luna 920 Patricio Unknown [id number] 10/27 10/27 Kalina Carrasco MD [id number] César diehl [id number] , P A 0ae Patricio Follow-up [id number] 11/10 11/10 Mamta Carrasco MD for mutiple 65-6t19-98f /2013 Barry, problems c-0b2911t50 , PA d37 Patricio Follow-up [id number] 11/10 11/10 Mamta Carrasco MD for mutiple 41-9fx8-otu /2013 Barry, problems 1-w82xad99z , PA 6e4 Patricio Follow-up [id number] 11/10 11/10 eC W: MD Luna for mutiple 56-2ny4-317 /2013 Abrilisen problems 2-kb753ko29 Burke nolasco 68a Patricio Follow-up [id number] 11/10 11/10 Mamta Carrasco MD for mutiple f8-4dce-942 /2013 Barry, problems d-4mvo023x1 , PA 201 Patricio Follow-up [id number] 01/03 01/03 Mamta Carrasco MD for mutiple 2d-9r67-n33 /2013 Tayfazal, problems 0-vx531y944 , PA 0f4 Kaisen Follow-up [id number] 01/03 01/03 Mamta Carrasco MD for mutiple 92-1t10-37u /2013 Tayfazal, problems 5-w39auhslk , PA 0b1 Kaisen Follow-up [id number] 01/03 01/03 eC W: MD Luna for mutiple ab-4bdc-8f7 /2013 Kaisen problems 2-540zlrd28 Burke nolasco dad Kaisen Follow-up [id number] 01/03 01/03 Mamta Carrasco MD for mutiple ec-2pq6-65s /2013 Barry, problems 5-82btz0d90 , PA b80 Kaisen Follow-up [id number] 03/06 03/06 Mamta Carrasco MD for mutiple ad-9a0i-e82 Barry, problems b-i91l11878 , PA 08e Kaisen Follow-up [id number] 03/06 03/06 Mamta Carrasco MD for mutiple 60-4re3-3v2 Barry, problems 8-0n7ow37jz , PA 5f8 Kaisen Follow-up [id number] 03/06 03/06 eC W: MD Luna for mutiple 80-4ecb-bc3 Kaisen problems c-82p2763o3 Burke nolasco bbc Kaisen Follow-up [id number] 03/06 03/06 Mamta Carrasco MD for mutiple 7d-61g0-yr9 Barry, problems b-x431j6192 , PA e29 Kaisen Follow-up [id number] 03/09 03/09 Mamta Carrasco MD for mutiple b8-40bb-83a Barry, problems 1-9cnt45t45 , PA 229 Kaisen Follow-up [id number] 03/09 03/09 Mamta Carrasco MD for mutiple d8-443f-9bf Tayfazal, problems f-l4324996t , PA 82b Kaisen Follow-up [id number] 03/09 03/09 eC W: MD Luna for mutiple ba-71l1-1y9 /2013 Kaisen problems 4-1353u2bh6 Fan g 862 Kaisen Follow-up [id number] 03/09 03/09 Mamta Carrasco MD for mutiple 2d-4359-9af /2013 Tayfazal, problems a-[id number] , PA 902 Kaisen Follow-up [id number] 04/10 04/10 Mamta Carrasco MD for mutiple 21-2a02-3a7 Tayfazal, problems 1-3652o2244 , PA 710 Kaisen Follow-up [id number] 04/10 04/10 Mamta Carrasco MD for mutiple 06-3q26-518 Tayfazal, problems 2-542k92708 , PA 755 Kaisen Follow-up [id number] 04/10 04/10 eC W: MD Luna for mutiple fd-4730-994 Kaisen problems e-033e9dl5k Burke nolasco 0d7 Kaisen Follow-up [id number] 04/10 04/10 Mamta Carrasco MD for mutiple de-41db-a0e /2013 Barry, problems a-hi931gb6t , PA 841 Kaisen Sick Visit [id number] 04/27 04/27 N shannon Carrasco MD - Follow up 57-4012-ab4 Barry, for 8-8893o69dq , P A multiple e98 problems Kaisen Sick Visit [id number] 04/27 04/27 N shannon Carrasco MD - Follow up 6b-45be-a04 Barry, for a-814832d66 , P A multiple 784 problems Kaisen Sick Visit [id number]-91 04/27 04/27 e CW: MD Luna - Follow up d1-4367-a86 /2013 Abrilisen for 6-j2h2x7v1x Luna multiple 565 problems Kaisen Sick Visit [id number] 04/27 04/27 N shannon Carrasco MD - Follow up d3-4255-a6a /2013 Tayfazal, for 4-3i2745279 , P A multiple f26 problems Kaisen Follow-up [id number] 05/29 05/29 Mamta Carrasco MD for mutiple fe-9mz1-vy9 Barry, problems f-801473m1n , PA 2df Kaisen Follow-up [id number] 05/29 05/29 Mamta Carrasco MD for mutiple b3-4818-9e4 /2014 Barry, problems 1-52u90r63t , PA e1b Kaisen Follow-up [id number] 05/29 05/29 eC W: MD Luna for mutiple 38-4ca6-70a Kaisen problems 2-50j2s47s3 Burke nolasco 4b2 Abrilisen Follow-up [id number] 05/29 05/29 Mamta Carrasco MD for mutiple ad-1i2l-i17 Barry, problems c-1t2k50swg , PA a63 Kaisen Follow-up [id number] 06/04 06/04 Mamta Carrasco MD for mutiple 81-4802-b96 /2014 Barry, problems a-l5xf48rzq , PA 300 Kaisen Follow-up [id number]-aq 06/04 06/04 Mamta Carrasco MD for mutiple 23-7ke5-1c4 /2014 Barry, problems 9-5tg0cu6j1 , PA b8b Kaisen Follow-up [id number] 06/04 06/04 eC W: MD Luna for mutiple 33-7y5i-u92 Kaisen problems e-2f0ow35e8 Burke nolasco b22 Kaisen Follow-up 56f97m97-8o 06/04 06/04 Mamta Carrasco MD for mutiple ac-4400-932 /2014 Tayyan, problems 0-x70851h8o , PA 2dc Kaisen Follow-up [id number] 08/28 08/28 Mamta Carrasco MD for mutiple ae-4eed-a22 /2014 Tayyan, problems 3-87us2t2sh , PA 09c Kaisen Follow-up [id number] 08/28 08/28 Mamta Carrasco MD for mutiple b6-43ec-b48 /2014 Tayyan, problems 6-6wk8f3938 , PA 5a1 Kaisen Follow-up [id number] 08/28 08/28 eC W: MD Luna for mutiple a8-6k10-168 /2014 Kaisen problems d-8l51m5xf7 Burke nolasco ad8 Kaisen Follow-up [id number] 08/28 08/28 Mamta Carrasco MD for mutiple 37-55v1-264 /2014 Tayyan, problems e-9877xu9s8 , PA e85 Kaisen Follow-up [id number] 09/27 09/27 Mamta Carrasco MD for mutiple 41-1m19-386 Tayyan, problems d-e3ni6s4c4 , PA aa2 Kaisen Follow-up [id number]-77 09/27 09/27 Mamta Carrasco MD for mutiple 49-1r94-81g /2014 Tayyan, problems c-3x22ia9sh , PA d51 Kaisen Follow-up [id number] 09/27 09/27 eC W: MD Luna for mutiple e7-8zz7-708 /2014 Kaisen problems d-00oj10gji Burke nolasco b84 Kaisen Follow-up ml6s1un0-03 09/27 09/27 Mamta Carrasco MD for mutiple 05-441b-a37 /2014 Tayyan, problems 2-rao334m3p , PA 94c Kaisen Refill efolm48q-7s 10/10 10/10 Shaji Carrasco MD 7a-47da-bc0 /2014 César fazal, c-x9u66855a , P A 491 Kaisen Refill 49x1v1lu-86 10/10 10/10 Shaji Carrasco MD 34-4737-85e /2014 César diehl, 9-10289ratu , P A 3fb Kaisen Refill [id number] 10/10 10/10 eCW: MD Luna 13-4184-8a0 /2014 Garret sen c-1kkxr2321 Luna cb9 Kaisen Refill ywbgc0x0-k4 10/10 10/10 Shaji Carrasco MD 12-8v63-278 /2014 César diehl, c-304ou6018 , P A 16f Kaisen Follow-up [id number] 12/11 12/11 Mamta Carrasco MD for mutiple 28-49db-896 /2014 Barry, problems 3-2740x036a , PA 5d4 Kaisen Follow-up [id number] 12/11 12/11 Mamta Carrasco MD for mutiple 2b-4cbc-9a2 /2014 Barry, problems e-k987j5501 , PA cf1 Kaisen Follow-up [id number] 12/11 12/11 eC W: MD Luna for mutiple d5-4984-b62 /2014 Kaisen problems e-47a40rqf0 Burke nolasco de6 Kaisen Follow-up [id number] 12/11 12/11 Mamta Carrasco MD for mutiple fa-4c14-50i /2014 Barry, problems 2-q22549015 , PA 24b Kaisen Refill 7um6tfd3-x3 12/25 12/25 Shaji Carrasco MD d3-47ba-88e /2014 César diehl, 7-824j22h70 , P A e90 Kaisen Refill [id number] 12/25 12/25 Shaji Carrasco MD c3-4357-a88 /2014 César diehl, 8-p75w2l507 , P A 0ff Kaisen Refill 3w1pq0t7-j7 12/25 12/25 eCW: MD Luna af-4536-b2c /2014 Garret sen 4-8y890348l Fan 736 Kaisen Refill [id number] 12/25 12/25 Shaji Carrasco MD 40-1u78-0c7 /2014 César diehl, 7-8jn232493 , P A c35 [facility] Follow-up [id number]-s5 02/12 02/12 Mamta Carrasco MD for mutiple a1-0jd0-74b /2014 Barry, problems a-3d3t02xf2 , PA 071 [facility] Follow-up [id number]-i6 02/12 02/12 Mamta Carrasco MD for mutiple 15-12z6-2n0 /2014 Barry, problems f-k7b133s13 , PA 79e [facility] Follow-up [id number] 02/12 02/12 eC W: MD Luna for mutiple b7-4ecb-8f9 Kaisen problems b-y0v9kr799 Fan g 479 [facility] Follow-up [id number] 02/12 02/12 Mamta Carrasco MD for mutiple ad-4o30-887 Barry, problems b-f6d560375 , PA a8e [facility] [id number] 03/18 03/18 Naw joi Carrasco MD Follow Up 34-405e-97a Barry, f-5t18243h3 , P A 91a [facility] r84ox4j5-3o 03/18 03/18 Naw joi Carrasco MD Follow Up 12-4872-b19 Barry, 5-p59728863 , P A 924 [facility] [id number] 03/18 03/18 eCW : MD Luna Follow Up fe-493c-bee Abrilisen b-k6o3le6d0 Burkeg 120 [facility] [id number] 03/18 03/18 Na joi Carrasco MD Follow Up 06-5e78-11i Barry, 6-e801214n4 , P A c3b Kaisen Refill [id number]-us 03/19 03/19 Shaji Carrasco MD b1-7f0y-2zz /2014 César diehl, 4-0rsy53m88 , P A b5e Kaisen Refill [id number] 03/19 03/19 Shaji Carrasco MD 2e-491d-8b3 /2014 César diehl, c-hu03o8273 , P A 711 Kaisen Refill [id number]-z7 03/19 03/19 eCW: MD Luna ea-4528-8e5 /2014 Garret sen c-7n016nb72 Luna 9e5 Kaisen Refill [id number]-e7 03/19 03/19 Shaji Carrasco MD 84-3v4x-7z4 /2014 César diehl, 2-z82291x1l , P A 111 Kaisen Follow-up [id number] 04/23 04/23 Mamta Carrasco MD for mutiple e2-2i25-751 /2014 Barry, problems e-3q9777k46 , PA d09 Kaisen Follow-up [id number] 04/23 04/23 Mamta Carrasco MD for mutiple ea-77i1-x8o /2014 Barry, problems 2-ee3a15lc7 , PA 232 Kaisen Follow-up 0h3vrt84-7m 04/23 04/23 eC W: MD Luna for mutiple f3-4493-a45 /2014 Kaisen problems c-770485o23 Burke nolasco a10 Kaisen Follow-up dl8m46x5-h2 04/23 04/23 jessica Carrasco MD for mutiple 3d-1r96-6n9 /2014 Barry, problems f-gu04k6p14 , PA eba Shaji Follow-Up [id number] 04/24 [place] Barry, 53-470c-bad /2014 Madeline patterson MD, PA d-08yo4b506 , P A 332 Shaji Follow-Up [id number] 04/24 war Barry, 7b-9r2j-32o /2014 Madeline patterson MD, PA 8-j2y5444w2 , P A f3e [facility] Holter [id number] 04/24 04/24 [facility] Césarfazal, monitor d6-57a4-y49 /2014 César diehl MD, PA 7-259i96176 , P A ba7 [facility] Follow-Up [id number] 04/24 04/24 eC W: Césarfazal, 77-4584-950 /2014 Naveen huggins MD, PA 8-zi0y05175 Fang 1b9 [facility] Follow-Up [id number] 04/24 04/24 [facility] Césarfazal, 71-3ss2-k43 /2014 Madeline patterson MD, PA 3-83o476b7c , P A 633 [facility] Holter [id number] 04/24 04[facility]24 [facility]-7a41-453 /2014 César diehl MD, PA 6-z9c7543pw , P A 3db [facility] Holter [id number] 04/24 04/24 eCW: Barry, monitor 91-6b28-1m7 /2014 Garret escoto MD, PA [id number] Fang 97e [facility] Holter [id number] 04/24 04/24 [facility] Césarfazal, monitor cd-45ad-88c /2014 César diehl MD, PA 6-s2w55453x , P A 2f8 [facility] echo/caroti [id number] 04/25 04/25 Shaji Reddy, d/arterial 9c-4ffd-887 /2014 MD Barry, PA dopplers 3-7q65u19ie , PA 055 [facility] echo/caroti [id number]-q1 04/25 04/25 Shaji Reddy, d/arterial 56-473c-b0 /2014 MD Barry, PA dopplers 4-854fhij9q , PA 672 [facility] echo/caroti [id number] 04/25 04/25 eCW: Barry, d/arterial 4e-41f9-060 /2014 Patricio BHATT, PA dopplers 9-c2rq236ur Fan g e4b Shaji echo/caroti [id number] 04/25 04/25 Shaji Barry, d/arterial 95-6cm3-563 /2014 MD Barry, PA dopplers 8-w6shj27dx , PA 368 Kaisen Follow-up [id number] 06/27 06/27 Na jessica Carrasco MD for mutiple a2-2k91-240 /2015 Tayfazal, problems e-1730to426 , PA 2dc Kaisen Follow-up [id number]-5u 06/27 06/27 jessica Carrasco MD for mutiple d3-4406-835 /2015 Barry, problems 0-6f69kuf7c , PA 11d Kaisen Follow-up [id number]-41 06/27 06/27 eC W: MD Luna for mutiple 62-74k4-77i /2015 Kaisen problems d-b4tm1al64 Burke nolasco 486 Kaisen Follow-up [id number]-0w 06/27 06/27 jessica Carrasco MD for mutiple 35-31t1-8mj /2015 Tayfazal, problems 7-s9gf0kqlj , PA 21c Shaji Follow-Up [id number] 07/28 07/28 Na war Barry, 91-4608-a29 /2015 Madeline patterson MD, PA d-88m45036h , P A 2a5 [facility] Follow-Up [id number] 07/28 07/28 Na war Barry, a5-4072-bf3 /2015 Madeline patterson MD, PA 1-19w07v5r7 , P A 990 Shaji Follow-Up [id number]-09 07/28 07/28 Na war Barry, ca-0l1v-gc0 /2015 Madeline patterson MD, PA 2-xj528217v , P A 852 Shaji Follow-Up [id number]-15 01/22 01/22 Na war Barry, 21-5m45-t8c /2015 Madeline patterson MD, PA 9-2s46d2482 , P A 5b9 Shaji Follow-Up [id number] 01/22 01/22 Mamta Reddy, 2e-9a83-27z /2015 Madeline patterson MD, PA 0-u2k662318 , P A 91c [facility] Follow-Up [id number] 07/22 07/22 Mamta Reddy, 57-45fa-91f /2016 Madeline patterson MD, PA e-tr6714kgw , P [place] a47 Procedures No Data [...]
[2020-02-08 16:43] LABS: Absolute Lymphocytes (CBC) 1.4 K/uL (0.7-4.9); Basophils % 0.8 % (0-1.3); Hematocrit 38.4 % (36.0-45.0); Lymphocytes % 21.1 % (15.3-44.8); MPV 8.8 fL (7.6-11.3); RBC Red Blood Cell Count 4.43 M/uL (3.86-4.86)
[2020-02-08] MEDS ORDERED: ONDANSETRON 4 MG/2 ML VIAL ONE (16:44)
[2020-02-08 16:50] LABS: Urine Bacteria <20 /HPF (<20); Urine Culture Reflex Order NOT NEEDED; Urine Mucus 1+ /HPF (NONE SEEN)
[2020-02-08 17:08] LABS: Albumin 4.1 g/dL (3.4-5.0); Bilirubin Direct 0.2 mg/dL (0-0.2); Bilirubin Total 0.5 mg/dL (0.2-1.0); Potassium 3.8 mmol/L (3.5-5.1); Protein, Total 8.8 g/dL (6.4-8.2)
[2020-02-08 17:34] LABS: Urine Blood NEGATIVE (NEG); Urine Glucose NEGATIVE (NEG); Urine Protein NEGATIVE (NEG)
--- NOTE | 2020-02-08 17:50 | RAD REPORT ---
EXAM DESCRIPTION: CT - Abdomen Pelvis W Contrast - 02/08/2020 5:31 pm CLINICAL HISTORY: Abdominal pain COMPARISON: December 2019 TECHNIQUE: Computed axial tomography of the abdomen pelvis was obtained. 100 cc Isovue-300 was admin istered intravenously. Oral contrast was not requested which limits evaluation of bowel. All CT scans are performed using dose optimization technique as appropriate and may include automated exposure control or mA/KV adjustment according to patient size. FINDINGS: Cholecystectomy. Prominence of the common bile duct. Small to moderate hiatal hernia Spleen, pancreas, adrenal and kidneys appear unremarkable. There is no evidence of diverticulitis. IMPRESSION: Prominence of the common bile duct probably physiologic in this elderly patient status p ost cholecystectomy. Pathology such as a stricture can also result in this appearance and should be c orrelated clinically and with appropriate lab values.
--- NOTE | 2020-02-08 17:59 | ER ---
Nurse's Notes [facility] Name: Marilin Cabral Age: 85 yrs Sex: Female : 1935 Arrival Date: 02/08/2020 Time: 15:00 Bed 5 Private MD: Diagnosis: Urinary tract infection, site not specified Presentation: 02/07 15:11 Chief complaint: Patient states: lower abd pain, dizziness and fatigue that began ss yesterday. Pt was seen at the [facility] today and was told she has a UTI and to come to the ER. Pt was also told today that she might be diabetic. Coronavirus screen: Client denies travel out of the [place] in the last 14 days. Ebola Screen: Patient denies exposure to infectious person. Patient denies travel to an Ebola-affected area in the 21 days before illness onset. Initial Sepsis Screen: Does the patient meet any 2 criteria? No. Patient's initial sepsis screen is negative. Does the patient have a suspected source of infection? Yes: Dysuria/Frequency/Urgency/UTI. Risk Assessment: Do you want to hurt yourself or someone else? Patient reports no desire to harm self or others. Onset of symptoms was February 07, 2020. 15:11 Method Of Arrival: Ambulatory ss 15:11 Acuity: UNA 3 ss Historical: - Allergies: 15:17 No Known Allergies; ss - PMHx: 15:17 CHF; Hypertension; ss - Immunization history:: Adult Immunizations up to date. - Social history:: Smoking status: unknown. - Family history:: not pertinent. - Hospitalizations: : No recent hospitalization is reported. Screenin:17 Abuse screen: Denies threats or abuse. Nutritional screening: No deficits noted. tw2 Tuberculosis screening: No symptoms or risk factors identified. Fall Risk Secondary diagnosis (15 points) impaired mobility. Assessment: 16:12 General: Appears in no apparent distress. uncomfortable, slender, well groomed, tw2 Behavior is calm, cooperative, appropriate for age. Pain: Complains of pain in back and abdomen Pain radiates to back. Neuro: Level of Consciousness is awake, alert, obeys commands, Oriented to person, place, time, situation. Cardiovascular: Heart tones S1 S2 Patient's skin is warm and dry. Respiratory: Airway is patent Respiratory effort is even, unlabored, Respiratory pattern is regular, symmetrical, Breath sounds are clear bilaterally. GI: Bowel sounds present X 4 quads. Reports lower abdominal pain, upper abdominal pain, nausea. : No signs and/or symptoms were reported regarding the genitourinary system. EENT: No signs and/or symptoms were reported regarding the EENT system. Derm: No signs and/or symptoms reported regarding the dermatologic system. Musculoskeletal: Range of motion: intact in all extremities. 16:17 Reassessment: provider at bedside at this time. tw2 16:50 Reassessment: Patient appears in no apparent distress at this time. No changes from tw2 previously documented assessment. Patient and/or family updated on plan of care and expected duration. Pain level reassessed. Patient is alert, oriented x 3, equal unlabored respirations, skin warm/dry/pink. 17:51 Reassessment: Patient appears in no apparent distress at this time. No changes from tw2 previously documented assessment. Patient and/or family updated on plan of care and expected duration. Pain level reassessed. Patient is alert, oriented x 3, equal unlabored respirations, skin warm/dry/pink. 18:23 Reassessment: Patient appears in no apparent distress at this time. No changes from tw2 previously documented assessment. Patient and/or family updated on plan of care and expected duration. Pain level reassessed. Patient is alert, oriented x 3, equal unlabored respirations, skin warm/dry/pink. Vital Signs: 15:11 BP 175 / 95; Pulse 95; Resp 16; Temp 98.0(TE); Pulse Ox 99% on R/A; Weight 61.69 kg; ss Height 5 ft. 0 in. (152.40 cm); Pain 5/10; 16:42 BP 216 / 92; Pulse 91; Resp 16; Pulse Ox 99% ; tw2 17:51 BP 203 / 95; Pulse 92; Resp 17; Pulse Ox 99% on R/A; tw2 18:23 BP 187 / 93; Pulse 83; Resp 17; Pulse Ox 98% on R/A; tw2 15:11 Body Mass Index 26.56 (61.69 kg, 152.40 cm) ss 16:42 provider notified. tw2 17:51 provider notified. tw2 ED Course: 15:00 Patient arrived in ED. ag5 15:17 Triage completed. ss 15:17 Arm band placed on right wrist. ss 16:14 Raghavendra Verma MD is Attending Physician. rn 16:17 Anabel Nicole, SANJIV is Primary Nurse. tw2 16:17 Placed in gown. Bed in low position. Call light in reach. [employer] school social studies tutor on. Pulse ox tw2 on. NIBP on. Warm blanket given. 16:25 Inserted saline lock: 20 gauge in right antecubital area, using aseptic technique. tw2 Blood collected. 16:40 Urine Culture Sent. tw2 16:40 Urine Microscopic Only Sent. tw2 17:31 CT Abd/Pelvis - IV Contrast Only In Process Unspecified. EDMS 18:03 Awaiting: re-evaluation of blood pressure after clonidine po table PRIOR to discharger tw2 per Dr. Verma. 18:27 No provider procedures requiring assistance completed. IV discontinued, intact, tw2 bleeding controlled, No redness/swelling at site. Pressure dressing applied. Administered Medications: 16:40 Drug: Zofran (Ondansetron) 4 mg Route: IVP; Site: right antecubital; tw2 17:56 Follow up: Response: No adverse reaction; Nausea is decreased tw2 18:01 Drug: cloNIDine 0.1 mg Route: PO; tw2 18:23 Follow up: Response: No adverse reaction; Blood pressure is lowered tw2 Outcome: 17:59 Discharge ordered by . rn 18:27 Discharged to home via wheelchair. tw2 18:27 Condition: stable 18:27 Discharge instructions given to patient, Instructed on discharge instructions, follow up and referral plans. medication usage, Demonstrated understanding of instructions, follow-up care, medications, Prescriptions given X 1. 18:29 Patient left the ED. tw2 Signatures: Dispatcher [employer] [facility] Raghavendra Verma MD MD rn Smirch, Shelby, RN RN ss Anabel Nicole RN RN tw2 Tre Rodriguez ag5
--- NOTE | 2020-02-08 17:59 | EDPHYS ---
Physician Documentation [facility] Name: Marilin Cabral Age: 85 yrs Sex: Female : 1935 Arrival Date: 02/08/2020 Time: 15:00 Bed 5 Private MD: ED Physician Raghavendra Verma HPI: 02/07 16:21 This 85 yrs old Female presents to ER via Ambulatory with complaints of Low rn abd pain, Dizziness, Weakness. 16:22 The patient presents with abdominal pain in the lower abdomen. Onset: The rn symptoms/episode began/occurred yesterday. The symptoms do not radiate. The symptoms are described as achy, intermittent. Modifying factors: The symptoms are alleviated by nothing, the symptoms are aggravated by nothing. Severity of pain: At its worst the pain was mild in the emergency department the pain is unchanged. The patient has not experienced similar symptoms in the past. The patient has been recently seen by a physician:. Reports lower abd pain, lower back pain, assoc with increased urinary frequency and urgency, no fever, + nausea. + mild upper and lower abd pain. . Historical: - Allergies: 15:17 No Known Allergies; ss - PMHx: 15:17 CHF; Hypertension; ss - Immunization history:: Adult Immunizations up to date. - Social history:: Smoking status: unknown. - Family history:: not pertinent. - Hospitalizations: : No recent hospitalization is reported. ROS: 16:22 Constitutional: Negative for fever, chills, and weight loss, Eyes: Negative for injury, rn pain, redness, and discharge, Cardiovascular: Negative for chest pain, palpitations, and edema, Respiratory: Negative for shortness of breath, cough, wheezing, and pleuritic chest pain, Abdomen/GI: Negative for diarrhea, and constipation, Back: + low back pain : Negative for injury, bleeding, discharge, and swelling, MS/Extremity: Negative for injury and deformity, Skin: Negative for injury, rash, and discoloration, Neuro: Negative for headache, numbness, tingling, and seizure. Exam: 16:22 Constitutional: This is a well developed, well nourished patient who is awake, alert, rn and in no acute distress. Head/Face: Normocephalic, atraumatic. ENT: dry MM Cardiovascular: Regular rate and rhythm. No pulse deficits. Respiratory: No increased work of breathing, no retractions or nasal flaring. Abdomen/GI: soft, non-tender Skin: Warm, dry MS/ Extremity: Pulses equal, no cyanosis. Neurovascular intact. Full, normal range of motion. Equal circumference. Neuro: Awake and alert, GCS 15 Vital Signs: 15:11 BP 175 / 95; Pulse 95; Resp 16; Temp 98.0(TE); Pulse Ox 99% on R/A; Weight 61.69 kg; ss Height 5 ft. 0 in. (152.40 cm); Pain 5/10; 16:42 BP 216 / 92; Pulse 91; Resp 16; Pulse Ox 99% ; tw2 17:51 BP 203 / 95; Pulse 92; Resp 17; Pulse Ox 99% on R/A; tw2 18:23 BP 187 / 93; Pulse 83; Resp 17; Pulse Ox 98% on R/A; tw2 15:11 Body Mass Index 26.56 (61.69 kg, 152.40 cm) ss 16:42 provider notified. tw2 17:51 provider notified. tw2 MDM: 16:14 Patient medically screened. rn 17:57 Differential diagnosis: non-specific abd pain, pancreatitis, Peptic Ulcer Disease, rn Ureterolithiasis, urinary tract infection. Data reviewed: vital signs, nurses notes, lab test result(s), radiologic studies, CT scan, and as a result, I will discharge patient. Counseling: I had a detailed discussion with the patient and/or guardian regarding: the historical points, exam findings, and any diagnostic results supporting the discharge/admit diagnosis, lab results, radiology results, the need for outpatient follow up, to return to the emergency department if symptoms worsen or persist or if there are any questions or concerns that arise at home. Response to treatment: the patient's symptoms have mildly improved after treatment, and as a result, I will discharge patient. Special discussion: I discussed with the patient/guardian in detail that at this point there is no indication for admission to the hospital. It is understood, however, that if the symptoms persist or worsen the patient needs to return immediately for re-evaluation. ED course: + UTI, will dc home with abx. Glucose normal, ct without acute findings. Will f/u with pcp. . 02/07 16:20 Order name: Basic Metabolic Panel; Complete Time: 17:28 rn 02/07 16:20 Order name: CBC with Diff; Complete Time: 17:00 02/07 16:20 Order name: Hepatic Function; Complete Time: 17: 02/07 16:20 Order name: Lipase; Complete Time: 17:28 02/07 16:20 Order name: Urine Culture 02/07 16:20 Order name: Urine Microscopic Only; Complete Time: 17:00 02/07 16:20 Order name: IV Saline Lock; Complete Time: 16:29 02/07 16:20 Order name: Labs collected and sent; Complete Time: 16: 02/07 16:20 Order name: Urine Dipstick-Ancillary (obtain specimen); Complete Time: 16:40 02/07 16:20 Order name: BNP; Complete Time: 17: 02/07 16:20 Order name: CT Abd/Pelvis - IV Contrast Only; Complete Time: 17:53 02/07 16:52 Order name: Urine Dipstick--Ancillary (enter results); Complete Time: 17:35 em1 Administered Medications: 16:40 Drug: Zofran (Ondansetron) 4 mg Route: IVP; Site: right antecubital; tw2 17:56 Follow up: Response: No adverse reaction; Nausea is decreased tw2 18:01 Drug: cloNIDine 0.1 mg Route: PO; tw2 18:23 Follow up: Response: No adverse reaction; Blood pressure is lowered tw2 Disposition: 02/08/20 17:59 Discharged to Home. Impression: Urinary tract infection, site not specified. - Condition is Stable. - Discharge Instructions: Urinary Tract Infection, Adult. - Prescriptions for Macrobid 100 mg Oral Capsule - take 1 capsule by ORAL route every 12 hours for 10 days; 20 capsule. - Medication Reconciliation Form, Thank You Letter, Antibiotic Education, Prescription Opioid Use form. - Follow up: Private Physician; When: 2 - 3 days; Reason: Recheck today's complaints, Re-evaluation by your physician. - Problem is new. - Symptoms have improved. Signatures: Dispatcher [employer] EDMS Raghavendra Verma MD MD rn Smirch, Shelby, RN RN ss Wise, Tara, RN RN tw2 Corrections: (The following items were deleted from the chart) 18:29 17:59 02/08/2020 17:59 Discharged to Home. Impression: Urinary tract infection, site tw2 not specified. Condition is Stable. Forms are Medication Reconciliation Form, Thank You Letter, Antibiotic Education, Prescription Opioid Use. Follow up: Private Physician; When: 2 - 3 days; Reason: Recheck today's complaints, Re-evaluation by your physician. Problem is new. Symptoms have improved. rn
[2020-02-08] MEDS ORDERED: cloNIDine HCL 0.1 MG TAB ONE (18:07)
[2020-02-08 18:37] VITALS: TEMP 98
[2020-02-08 18:41] VITALS: BP 187/93; O2SAT 98
== END 2020-02-08 18:29 | disposition home or self-care (01) ==
LOC: ER 14:57
DX: N39.0 Urinary tract infection, site not specified (principal); I10 Essential (primary) hypertension
CPT/HCPCS: 87088; 85025; 87086; 80048; 36415; 80076; 83690; 83880; 74177; 96374; 99284; Q9967; J2405; 81003; 81015

== ENCOUNTER 2020-09-17 11:26 | Observation (INO) | payer MEDICARE ==
--- OUTSIDE RECORDS SUMMARY | 2020-09-17 11:29 | XMS REPORT | Continuity of Care Document ---
:1935 Author Organization [facility] t Address [address] [place] [address] Care Team Providers Name Role Phone Doctor Unassigned, [place] Attending Clinician Unavailable Andrews BHATT Attending Clinician La Nena KINCAID, L Attending Clinician Unavailable Nikki MENJIVAR, S Attending Clinician Pk BHATT A Attending Clinician Bonnie Rosales DO Attending Clinician Brii BHATT S Attending Clinician Lyn BHATT Attending Clinician Provider, Urgent Care Attending Clinician Unavailable Tech, Cardio Fac Attending Clinician Unavailable 2, Cardio Fac Room Attending Clinician Unavailable Rosalio BHATT Admitting Clinician Lyn BHATT Admitting Clinician Problems Condition Condition Condition Status Onset Resolution Last Treating Co mments Source Name Details Category Date Date Treatment Clinician Date Chronic Problem Active 2017-12-24 Arie micheal kidney 04:10:02 l disease, Chronic Luzmaria nn stage 3 kidney (moderate) disease, stage 3 (moderate) Active Problem 12/24/2017 Shaji Reddy MD, PA Pulmonary Problem Active 2017-12-24 Me moria hypertensi 04:10:02 l on, [place] secondary Pulmonary hypertensi on, secondary Active Problem 12/24/2017 Shaji Reddy MD, PA Nonrheumat Diagnosis Active 2017-12-24 Memoria ic aortic 04:10:02 l (valve) [place] insufficie Nonrheumat ncy ic aortic (valve) insufficie ncy Active Diagnosis 12/24/2017 Shaji Reddy MD, PA Coronary Problem Active 2017-12-24 Mem oria atheroscle 04:10:02 l rosis of Coronary Herm kristie jackson atheroscle coronary rosis of artery jackson coronary artery Active Problem 12/24/2017 Shaji Reddy MD, PA Coronary Diagnosis Active 2017-12-24 M emoria angioplast 04:10:02 l y status Coronary Herm kristie angioplast y status Active Diagnosis 12/24/2017 Shaji Reddy MD, PA CHF, Problem Active 2017-12-24 Memor ia chronic 04:10:02 l diastolic CHF, [place] chronic diastolic Active Problem 12/24/2017 Shaji Reddy MD, PA Old Diagnosis Active 2017-12-24 Mem oria myocardial 04:10:02 l infarction [place] myocardial infarction Active Diagnosis 12/24/2017 Shaji Reddy MD, PA Abnormal Problem Active 2017-12-24 Mem oria ECG 04:10:02 l Abnormal [place] ECG Active Problem 12/24/2017 Shaji Reddy MD, PA CAD Problem Active 2017-12-24 Memor ia without 04:10:02 l angina CAD [place] without angina Active Problem 12/24/2017 Shaji Reddy MD, PA 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 04:10:02 l Sick [place] sinus syndrome Active Diagnosis 12/24/2017 Shaji Reddy MD, PA CHF, Diagnosis Active 2017-12-24 Mem oria chronic 04:10:02 l systolic & CHF, [place] diastolic chronic systolic & diastolic Active Diagnosis 12/24/2017 Shaji Reddy MD, PA Hypertensi Problem Active 2017-12-24 M emoria ve heart 04:10:02 l disease [place] without Hypertensi heart ve heart failure disease without heart failure Active Problem 12/24/2017 Shaji Reddy MD, PA Other Problem Active 2017-12-24 Memor ia specified 04:10:02 l cardiac Other [place] dysrhythmi specified as cardiac dysrhythmi as Active Problem 8 Shaji Reddy MD, PA Chronic Problem Active 2017-12-24 Arie micheal kidney 04:10:02 l disease, Chronic Luzmaria nn unspecifie kidney d disease, unspecifie d Active Problem 12/24/2017 Shaji Reddy MD, PA Chronic Problem Active 2017-12-24 Arie micheal kidney 04:10:02 l disease, Chronic [place] nn Stage III kidney (moderate) disease, Stage III (moderate) Active Problem 12/24/2017 Shaji Reddy MD, PA Postproced Problem Active 2017-12-24 M emoria ural PCI 04:10:02 l status [place] Postproced ural PCI status Active Problem 12/24/2017 Shaji Reddy MD, PA Old Problem Active 2017-12-24 Memor ia myocardial 04:10:02 l infarction [place] myocardial infarction Active Problem 12/24/2017 Shaji Reddy MD, PA Benign Problem Active 2017-12-24 Memor ia hypertensi 04:10:02 l ve heart Benign [place] disease hypertensi without ve heart heart disease failure without heart failure Active Problem 12/24/2017 Shaji Reddy MD, PA Mixed Problem Active 2017-12-24 Memor ia hyperlipid 04:10:02 l emia Mixed [place] hyperlipid emia Active Problem 12/24/2017 Shaji Reddy MD, PA Pulmonary Diagnosis Active 2017-12-24 Memoria hypertensi 04:10:02 l on, [place] unspecifie Pulmonary d hypertensi on, unspecifie d Active Diagnosis 12/24/2017 Shaji Reddy MD, PA Hypertensi Diagnosis Active 2017-12-24 Memoria ve heart 04:10:02 l and [place] chronic Hypertensi kidney ve heart disease and with heart chronic failure kidney and stage disease 1 through with heart stage 4 failure chronic and stage kidney 1 through disease, stage 4 or chronic unspecifie kidney d chronic disease, kidney or disease unspecifie d chronic kidney disease Active Diagnosis 12/24/2017 Shaji Reddy MD, PA Paroxysmal Diagnosis Active 2017-12-24 Memoria atrial 04:10:02 l fibrillati [place] on Paroxysmal atrial fibrillati on Active Diagnosis 12/24/2017 Shaji Reddy MD, PA Atheroscle Diagnosis Active 2017-12-24 Memoria rotic 04:10:02 l heart [place] disease of Atheroscle jackson rotic coronary heart artery disease of with jackson unspecifie coronary d 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 Active Diagnosis 12/24/2017 Shaji Reddy MD, PA Body mass Problem Active 2017-12-24 Me moria index 04:10:02 l (BMI) Body Reed 30.0-30.9, mass index adult (BMI) 30.0-30.9, adult Active Problem 12/24/2017 Shaji Reddy MD, PA Obesity, Problem Active 2017-12-24 Mem oria unspecifie 04:10:02 l d Obesity, [place] unspecifie d Active Problem 12/24/2017 Shaji Reddy MD, PA Back pain Problem Active 2015-06-29 Me moria 03:03:14 l Back [place] pain Active Problem 06/29/2015 eCW: Kaisen Fang CHF Problem Active 2015-06-29 Memor ia (congestiv 03:03:14 l e heart CHF Reed failure) (congestiv e heart failure) Active Problem 06/29/2015 eCW: Kaisen Fang Dementia Problem Active 2015-06-29 Mem oria 03:03:14 l Dementia Yaw n Active Problem 06/29/2015 eCW: Kaisen Fang Pulmonary Problem Active 2015-06-29 Me moria hypertensi 03:03:14 l on [place] Pulmonary hypertensi on Active Problem 6 eCW: Kaisen Fang Hypertensi Problem Active 2015-06-29 M emoria on with 03:03:14 l renal [place] disease Hypertensi on with renal disease Active Problem 06/29/2015 eCW: Kaisen Fang Systolic Problem Active 2015-06-29 Mem oria CHF with 03:03:14 l reduced Systolic Luzmaria nn left CHF with ventricula reduced r left function, ventricula NYHA class r 2 function, NYHA class 2 Active Problem 06/29/2015 eCW: Patricio Carrasco Depression Problem Active 2015-06-29 M emoria with 03:03:14 l anxiety [place] Depression with anxiety Active Problem 06/29/2015 eCW: Patricio Carrasco CAD Problem Active 2015-06-29 Memor ia (coronary 03:03:14 l artery CAD [place] disease) (coronary artery disease) Active Problem 06/29/2015 eCW: Patricio Carrasco CKD Problem Active 2015-06-29 Memor ia (chronic 03:03:14 l kidney CKD [place] disease) (chronic stage 3, kidney GFR 30-59 disease) ml/min stage 3, GFR 30-59 ml/min Active Problem 06/29/2015 eCW: Patricio Carrasco 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 N.K.D.A. Active Info Not Arie micheal Available 9-08 l 00:00: [place] 00 Beta Beta Active bradycardia Memor ia estrellita estrellita 2-11 l 00:00: [place] 00 Lisinopr Lisinopr Active renal side Me moria il il effects 2-11 l 00:00: [place] 00 clononid clononid Active sleepy Memori a ine ine 2-11 l 00:00: [place] 00 NSAID NSAID Active stomach Memoria upset 2-11 l 00:00: [place] 00 Family History Family Member Diagnosis Comments Start Date Stop Date Source Unknown Family Family History 2015-06-29 2015-06-29 Memori al Reed Member 03:03:14 03:03:14 Social History Social Habit Start Date Stop Date Quantity Comments Source TobaccoUse: 2016-07-22 2016-07-22 [facility] kristie 00:00:00 00:00:00 Doyosarthakkeaspirinor 2015-06-27 2015-06-27 Kirsten Mccartney abloodthinnerdrug? 00:00:00 00:00:00 Medications Ordered Filled Start Stop Current Ordering Indication Dosage Frequency Signature Comments Components Source Medication Medication Date Date Medication? Clinician (SIG) Name Name Nitroglycer 2018-0 Yes Shaji not Memor ia in 8-10 [place] defined l 04:10: Barry Mcbride Atorvastati 2018-0 Yes Shaji 1 tablet M emoria n Calcium 8-10 [place] l 04:10: aBrry Mcbride Lasix 2018-0 Yes Shaji 1 tablet Memoria 8-10 [place] l 04:10: Barry Mcbride Clopidogrel 2018-0 Yes Shaji 1 tablet M emoria Bisulfate 8-10 [place] l 04:10: Barry Mcbride Pantoprazol 2018-0 Yes Shaji 1 tablet M emoria e Sodium 8-10 [place] l 04:10: Barry Mcbride Methocarbam 2018-0 Yes Shaji 1 tablet M emoria ol 8-10 [place] l 04:10: Barry Mcbride Acetaminoph 2018-0 Yes Shaji 1 tablet M emoria en-Codeine 8-10 [place] as needed l #3 04:10: Barry Mcbride Lisinopril 2018-0 Yes Shaji 1 tablet Me moria 8-10 [place] l 04:10: Barry Mcbride Donezepil 2018-0 Yes Shaji one tablet M emoria HCl-10 mg 8-10 [place] l 04:10: Barry Mcbride Aspirin 2018-0 Yes Shaji 1 tablet Memor ia 8-08 [place] l 00:00: Barry Mcbride Xarelto 2018-0 Yes Shaji 1 tablet Memor ia 8-08 [place] with food l 00:00: Barry Mcbride Aspirin 2018-0 Yes Shaji 1 tablet Memor ia 3-27 [place] l 04:10: Barry Mcbride Mirtazapine 2018-0 Yes Shaji 1 tablet M emoria 2-14 [place] l 05:10: Barry Mcbride Clonazepam 2018-0 Yes Shaji 1 tablet Me moria 2-14 [place] l 05:10: Barry Garcia [place] 2018-0 Yes Shaji 1 tablet Memoria 2-14 [place] as needed l 05:10: Barry Garcia Aspirin 2016-0 Yes Shaji 1 tablet Memor ia - [place] l 04:10: Barry Zapata Robaxin-750 2016-0 Yes Shaji 1 tablet M emoria - [place] l 04:10: Barry Zapata Pantoprazol 2016-0 Yes Shaji 1 tablet M emoria e Sodium 01-30 [place] l 04:10: Barry Zapata Potassium 2016-0 Yes Shaji 1 capsule Me moria Chloride 01-30 [place] l 04:10: Barry Mcbride Lisinopril 0 Yes Shaji 1 tablet Me moria 01-30 [place] l 04:10: Barry Zapata Aricept 2016-0 Yes Shaji 1 tablet Memor ia 01-30 [place] at bedtime l 04:10: Barry Zapata Plavix 2016-0 Yes Shaji 1 tablet Memori a 01-30 [place] l 04:10: Barry Zapata Clonazepam 2016-0 Yes Shaji 1 tablet Me moria - [place] l 04:10: Barry Zapata Nitrostat 0 Yes Shaji 1 tablet Mem oria 01-30 [place] l 04:10: Barry Zapata Mirtazapine 2016-0 Yes Shaji 1 tablet M emoria - [place] l 04:10: Barry Zapata [place] 0 Yes Shaji 1 tablet Memoria -16 [place] as needed l 04:10: Barry Zapata Lasix 0 Yes Shaji 1 tablet Memoria 16 [place] l 04:10: Barry Zapata Atorvastati 0 Yes Shaji 1 tablet M emoria n Calcium - [place] l 04:10: Barry Zapata Nitroglycer 2016-0 Yes Shaji not Memor ia in 01-30 [place] defined l 04:10: Barry Mcbride 03 Nitroglycer 2016-0 Yes Shaji Unknown Me moria in 3-10 [place] l 05:10: HydrALAZINE No Shaji 1 tablet M emoria HCl 3-14 [place] l 00:00: HydrALAZINE No Kaisen 1 tablet Memoria HCl 2-13 Fang l 03:03: Aspirin 0 Yes Kaisen 1 tablet Arie micheal 2-13 Fang l 03:03: Womens Yes Kaisen Unknown Memori a Multi 2-13 Fang l Vitamin & 03:03: 14 Nitrostat Yes Kaisen DISSOLVE Me moria 2-13 Fang ONE TABLET l 03:03: UNDER THE TONGUE AND NEEDED EVERY 5 MINUTES NEEDED Clonazepam Yes Kaisen 1 tablet M emoria 2-13 Fang l 03:03: Mirtazapine Yes Kaisen TAKE 1 Me moria 2-13 Fang TABLET l 03:03: BEFORE BEDTIME IN THE EVENING ONCE EVERY NIGHT FOR 30 DAYS Atorvastati Yes Kaisen 1 tablet Memoria n Calcium 2-13 Fang l 03:03: Promethazin Yes Kaisen 10 ml as Memoria e-Codeine 2-11 Fang needed l 00:00: HydrALAZINE Yes Kaisen 1 tablet Memoria HCl 2-11 Fang l 00:00: Levaquin Yes Kaisen 1 tablet Mem oria 2-11 Fang l 00:00: Albuterol-I Yes Kaisen 3 ml Arie micheal pratropium 2-11 Fang l 00:00: Aricept 2013-05 Yes Kaisen 1 tablet Arie micheal 1-25 Fang l 00:00: [place] 2013-1 Yes Kaisen 1 tablet Memori a 0-21 Fang as needed l 00:00: Clopidogrel 2013-0 Yes Kaisen 1 tablet Memoria Bisulfate 5-07 Fang l 00:00: Potassium 2012- Yes Kaisen 1 tablet Me moria Chloride 1-01 Fang l 00:00: Lasix 2012-05 Yes Kaisen 1 tablet Memori a 1-01 Fang l 00:00: Reed 00 Os-Tai 500 2013-0 Yes Kaisen 1 tablet M emoria + D 4-25 Fang with meals l 00:00: Reed 00 Vital Signs Vital Name Observation Time Observation Value Comments Source Weight 2017-12-22 20:30:00 [facility] [place] Height 2017-12-22 20:30:00 [facility] [place] Heart Rate 2017-12-22 20:30:00 [facility] [place] Diastolic (mm Hg) 2017-12-22 20:30:00 Mem orial [place] Systolic (mm Hg) 2017-12-22 20:30:00 Arie micheall [place] Weight 2017-08-05 18:45:00 [facility] [place] Heart Rate 2017-08-05 18:45:00 [facility] [place] Diastolic (mm Hg) 2017-08-05 18:45:00 Mem orial [place] Systolic (mm Hg) 2017-08-05 18:45:00 Arie rial [place] Weight 2017-06-28 21:15:00 [facility] [place] Heart Rate 2017-06-28 21:15:00 [facility] [place] Diastolic (mm Hg) 2017-06-28 21:15:00 Mem orial [place] Systolic (mm Hg) 2017-06-28 21:15:00 Arie micheall [place] Weight 2017-01-28 20:00:00 [facility] Heart Rate 2017-01-28 20:00:00 [facility] [place] Diastolic (mm Hg) 2017-01-28 20:00:00 Mem orial [place] Systolic (mm Hg) 2017-01-28 20:00:00 Arie micheall [place] Weight 2016-07-22 20:30:00 [facility] Heart Rate 2016-07-22 20:30:00 [facility] [place] Diastolic (mm Hg) 2016-07-22 20:30:00 Mem orial [place] Systolic (mm Hg) 2016-07-22 20:30:00 Arie micheall [place] Weight 2016-01-23 19:45:00 [facility] Heart Rate 2016-01-23 19:45:00 [facility] [place] Diastolic (mm Hg) 2016-01-23 19:45:00 Mem orial [place] Systolic (mm Hg) 2016-01-23 19:45:00 Arie rial [place] Weight 2015-07-29 19:30:00 [facility] Heart Rate 2015-07-29 19:30:00 [facility] [place] Diastolic (mm Hg) 2015-07-29 19:30:00 Mem orial [place] Systolic (mm Hg) 2015-07-29 19:30:00 Arie rial [place] Weight 2015-06-27 20:00:00 [facility] [place] Height 2015-06-27 20:00:00 [facility] Temperature Oral (F) 2015-06-27 20:00:00 98.5 F [facility] Heart Rate 2015-06-27 20:00:00 [facility] [place] Diastolic (mm Hg) 2015-06-27 20:00:00 Mem orial [place] Systolic (mm Hg) 2015-06-27 20:00:00 Arie rial [place] Respitory Rate 2015-06-27 20:00:00 Memori al [place] Procedures This patient has no known procedures. Encounters Start End Encounter Admission Attending Care Care Encounter Source Date/Time Date/Time Type Type Clinicians Facility Department ID 2020-04-04 2020-04-04 Orders Doctor LOZADA [id number] 00:00:00 00:00:00 Only Unassigned, MYNOR [id number] [place] [facility] [id number] 2020-03-25 2020-03-25 [facility] [id number] 00:00:00 00:00:00 Neda Werner [id number] [place] [id number] Profess [id number] [address] 2020-03-25 2020-03-25 Orders Doctor LOZADA 1.2.840.114 [id number] 00:00:00 00:00:00 Only Unassigned, MYNOR [id number] [place] [facility] 4.2.7.2.686 [id number] 2020-03-12 2020-03-12 Transition Dae Deutsch [id number] 00:00:00 00:00:00 of Care Abena Dias [id number] [place] [id number] [id number] 2020-03-08 2020-03-10 Emergency [facility] [id number] 22:38:00 14:50:00 Suzie Gonsales [place] [id number] [place] 4.2.7.2.686 [place] [id number] 2019-10-19 2019-10-19 Orders Doctor NEVILLE [id number] 00:00:00 00:00:00 Only Unassigned, MYNOR [id number] [place] [facility] [id number] 2019-10-03 2019-10-[address] [facility] [id number] 07:55:47 15:55:34 ne Visit Nieves Simmons [place] [id number] [place] [id number] Professio [id number] nal 044 Building 2019-09-26 2019-09-26 Transition RobinseanDae 1.2.840.114 [id number] 00:00:00 00:00:00 of Care Abenadionicio Dias [id number] [place] [id number] 2019-09-21 2019-09-23 [facility] Khalida Rosales [facility] [id number] 17:13:19 16:17:00 Encounter Shayla Teresakinza Ilda [place] 350.1.13.1 0 Yelitza [place]olson 4.2.7.2.686 [place] [id number] 2019-09-21 2019-09-21 Orders Doctor NEVILLE [id number] 00:00:00 00:00:00 Only Unassigned, MYNOR [id number] [place] [facility] 4.2.7.2.686 [id number] 2019-09-06 2019-09-06 Urgent Provider, [facility] [id number] 15:00:31 15:20:31 Care [facility] [id number] Care [place] 4.2.7.2.686 Professio [id number] nal 044 Office Building One 2019-09-05 2019-09-05 Telephone Pk, [facility] [id number] 00:00:00 00:00:00 SET [id number] [place] 4.2.7.2.686 Professio [phone] [place] [address] Office [facility] [address] 2019-06-20 2019-06-20 Telephone Andrews, [facility] [id number] 00:00:00 00:00:00 Neda [place] 350.1.13.10 [place] 4.2.7.2.686 Professio [id number] [address] 2019-06-02 2019-06-02 Office Services Specialist Tech, [facility] Cardio Fac [facility] 1. [id number] 13:41:36 14:41:36 Visit 2, Adc Cardio Fac Room Mary Alice 350.1. 13.10 [place] 4.2.7.2.686 Professio [id number] 2019-05-30 2019-05-30 Office [facility] [id number] 08:52:42 09:32:42 Visit Neda [place] 350.1.13.10 [place] 4.2.7.2.686 Professio [phone] 2017-12-22 2017-12-22 [id number] 15:30:00 15:30:00 [facility] 2017-08-05 2017-08-05 [id number] 13:45:00 13:45:00 Barry Reddy [facility] 2017-07-02 2017-07-[address] [facility] Shaji [id number] eClinic 10:30:00 10:30:00 Barry Reddy Md al [facility] 2017-07-02 2017-07-02 Outpatient [facility] [id number] eClinic 10:00:00 10:00:00 Barry Reddy Md al [facility] 2017-06-28 2017-06-28 [id number] 15:15:00 15:15:00 Barry Reddy Md al [facility] 2017-01-28 2017-01-28 Outpatient [facility] [id number] eClinic 15:00:00 15:00:00 Barry Reddy Md al [facility] 2016-07-30 2016-07-30 Outpatient [facility] [id number] eClinic 15:00:00 15:00:00 Barry Reddy Md al [facility] 2016-07-22 2016-07-22 Outpatient [facility] [id number] eClinic 14:30:00 14:30:00 Barry Reddy MD, tommy Archer MD, PA PA 2016-01-23 2016-01-23 Outpatient [facility] [id number] eClinic 14:45:00 14:45:00 Barry Reddy MD, tommy Arcehr MD, PA PA 2015-07-29 2015-07-29 Outpatient [facility] [id number] eClinic 14:30:00 14:30:00 Barry Reddy MD, tommy Archer MD, PA PA 2015-06-27 2015-06-27 Outpatient Patricio Curry [id number] eClinic 14:00:00 14:00:00 MD Luna Carrasco MD alWo rks Results This patient has no known results.
[2020-09-17 15:19] LABS: Absolute Lymphocytes (CBC) 1.4 K/uL (0.7-4.9); Basophils % 0.6 % (0-1.3); Hematocrit 39.2 % (36.0-45.0); Lymphocytes % 17.2 % (15.3-44.8); MPV 8.6 fL (7.6-11.3); RBC Red Blood Cell Count 4.49 M/uL (3.86-4.86)
[2020-09-17 15:29] LABS: Protime INR 1.04
[2020-09-17 15:38] LABS: Albumin 3.8 g/dL (3.4-5.0); Bilirubin Direct 0.2 mg/dL (0-0.2); Bilirubin Total 0.6 mg/dL (0.2-1.0); Magnesium 2.3 mg/dL (1.8-2.4); Potassium 3.9 mmol/L (3.5-5.1); Protein, Total 8.2 g/dL (6.4-8.2); Troponin (Emerg Dept Use Only) 0.14 ng/mL (0.0-0.045)
[2020-09-17] MEDS ORDERED: NA CHLORIDE 0.9% 500 ML ONE (15:52)
[2020-09-17] MEDS ORDERED: ONDANSETRON 4 MG/2 ML VIAL ONE (15:52)
[2020-09-17] MEDS ORDERED: MORPHINE 2 MG/ML SYR ONE (15:52)
--- NOTE | 2020-09-17 16:13 | RAD REPORT ---
EXAM DESCRIPTION: USExtrem Venous W Compress Bil09/17/2020 4:07 pm CLINICAL HISTORY: Leg pain COMPARISON: none FINDINGS: The common femoral, superficial femoral, popliteal and posterior tibial veins bilaterally are compressible and demonstrate augmentation. Doppler demonstrates good flow. IMPRESSION: No evidence of deep venous thrombosis involving either lower extremity.
--- NOTE | 2020-09-17 16:40 | RAD REPORT ---
EXAM DESCRIPTION: CT - Angio Aorta For Dissection - 09/17/2020 4:20 pm CLINICAL HISTORY: . Chest and abdominal pain COMPARISON: 2019 TECHNIQUE: Computed tomography angiography of the chest, abdomen pelvis were obtained. 100 cc Isovue 370 was administered intravenously. Coronal and sagittal reconstruction were performed. MIP 3D reconstruction was performed All CT scans are performed using dose optimization technique as appropriate and may include automated exposure control or mA/KV adjustment according to patient size. FINDINGS: An aortic dissection is not seen. An aortic aneurysm is not displayed. Moderate calcified plaque is present. Calcification proximal celiac artery results in high-grade stenosis, SMA and CARMELLA are patent . Calcifi cation proximal left renal artery results in high-grade stenosis A lung consolidation is not present. A pericardial effusion is not seen. A pleural effusion is not n oted. Mild fatty liver. Prominence of common bile duct probably combination of the patient having had a cho lecystectomy and advanced age. Small to moderate hiatal hernia Spleen, pancreas adrenals kidneys demonstrate no significant abnormality. Diverticula stem from the colon without evidence of diverticulitis. Spondylosis involves lumbar spine resulting spinal stenosis. IMPRESSION: Negative for an aortic dissection. 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
--- NOTE | 2020-09-17 16:41 | RAD REPORT ---
EXAM DESCRIPTION: Chuy Single View09/17/2020 3:06 pm CLINICAL HISTORY: Cough COMPARISON: 2019 FINDINGS: The lungs appear clear of acute infiltrate. The heart is mildly enlarged IMPRESSION: No acute abnormalities displayed
--- NOTE | 2020-09-17 16:51 | RAD REPORT ---
EXAM DESCRIPTION: RAD - Pelvis - 09/17/2020 4:41 pm CLINICAL HISTORY: Pelvic pain FINDINGS: No fracture or dislocation is seen. Osteoporosis. Mild osteoarthritis involves the hips.
--- NOTE | 2020-09-17 17:20 | EDPHYS ---
Physician Documentation [facility] Name: Marilin Cabral Age: 85 yrs Sex: Female : 1935 Arrival Date: 09/17/2020 Time: 11:33 Bed 20 Private MD: KIESHA Physician Asael Gifford HPI: 09/17 14:47 This 85 yrs old Female presents to ER via Wheelchair with complaints of Leg isabelle Pain. 14:47 The patient presents with pain, that is acute. The complaints affect the lateral aspect isabelle of right thigh, lateral aspect of right knee, lateral aspect of right calf, right hamstring, posterior aspect of right knee, right calf, medial aspect of right thigh, medial aspect of right knee, medial aspect of right calf, right quadriceps, right knee and right moya. Context: The problem was sustained at an unknown site, resulted from an unknown cause, the patient can partially bear weight. Onset: The symptoms/episode began/occurred 2 day(s) ago. Modifying factors: The symptoms are alleviated by remaining still, the symptoms are aggravated by movement. Associated signs and symptoms: The patient has no apparent associated signs or symptoms. Severity of symptoms: At their worst the symptoms were moderate, in the emergency department the symptoms are unchanged. The patient has not experienced similar symptoms in the past. Historical: - Allergies: 12:10 No Known Allergies; tw2 - PMHx: 12:10 CHF; Hypertension; tw2 - Immunization history:: Adult Immunizations. - Social history:: Smoking status: . - Family history:: not pertinent. ROS: 14:47 Constitutional: Negative for fever, chills, and weight loss, Eyes: Negative for injury, isabelle pain, redness, and discharge, ENT: Negative for injury, pain, and discharge, Neck: Negative for injury, pain, and swelling, Cardiovascular: Negative for chest pain, palpitations, and edema, Respiratory: Negative for shortness of breath, cough, wheezing, and pleuritic chest pain, Abdomen/GI: Negative for abdominal pain, nausea, vomiting, diarrhea, and constipation, Back: Negative for injury and pain, : Negative for injury, bleeding, discharge, and swelling, Skin: Negative for injury, rash, and discoloration, Neuro: Negative for headache, weakness, numbness, tingling, and seizure, Psych: Negative for depression, anxiety, suicide ideation, homicidal ideation, and hallucinations, Allergy/Immunology: Negative for hives, rash, and allergies, Endocrine: Negative for neck swelling, polydipsia, polyuria, polyphagia, and marked weight changes, Hematologic/Lymphatic: Negative for swollen nodes, abnormal bleeding, and unusual bruising. 14:47 MS/extremity: Positive for decreased range of motion, pain, tenderness, of the right leg and left leg. Exam: 14:47 Constitutional: This is a well developed, well nourished patient who is awake, alert, isabelle and in no acute distress. Head/Face: Normocephalic, atraumatic. Eyes: Pupils equal round and reactive to light, extra-ocular motions intact. Lids and lashes normal. Conjunctiva and sclera are non-icteric and not injected. Cornea within normal limits. Periorbital areas with no swelling, redness, or edema. ENT: Nares patent. No nasal discharge, no septal abnormalities noted. Tympanic membranes are normal and external auditory canals are clear. Oropharynx with no redness, swelling, or masses, exudates, or evidence of obstruction, uvula midline. Mucous membranes moist. Neck: Trachea midline, no thyromegaly or masses palpated, and no cervical lymphadenopathy. Supple, full range of motion without nuchal rigidity, or vertebral point tenderness. No Meningismus. Chest/axilla: Normal chest wall appearance and motion. Nontender with no deformity. No lesions are appreciated. Cardiovascular: Regular rate and rhythm with a normal S1 and S2. No gallops, murmurs, or rubs. Normal PMI, no JVD. No pulse deficits. Respiratory: Lungs have equal breath sounds bilaterally, clear to auscultation and percussion. No rales, rhonchi or wheezes noted. No increased work of breathing, no retractions or nasal flaring. Abdomen/GI: Soft, non-tender, with normal bowel sounds. No distension or tympany. No guarding or rebound. No evidence of tenderness throughout. Back: No spinal tenderness. No costovertebral tenderness. Full range of motion. Skin: Warm, dry with normal turgor. Normal color with no rashes, no lesions, and no evidence of cellulitis. Neuro: Awake and alert, GCS 15, oriented to person, place, time, and situation. Cranial nerves II-XII grossly intact. Motor strength 5/5 in all extremities. Sensory grossly intact. Cerebellar exam normal. Normal gait. Psych: Awake, alert, with orientation to person, place and time. Behavior, mood, and affect are within normal limits. 14:47 Musculoskeletal/extremity: ROM: limited active range of motion, limited passive range of motion, Circulation is intact in all extremities. Sensation intact. Compartment Syndrome exam of affected extremity: is normal. DVT Exam: no swelling, no tenderness, negative Homans' sign noted on exam, no appreciated bluish discoloration, no erythema, no increased warmth, pain. Vital Signs: 12:08 BP 113 / 101; Pulse 73; Resp 17; Temp 97.9(TE); Pulse Ox 97% on R/A; Weight 61.23 kg tw2 (R); 12:08 Height 5 ft. 1 in. (154.94 cm); tw2 12:11 BP 155 / 64; tw2 14:01 BP 154 / 88; Pulse 88; Resp 18; Temp 97.9(O); Pulse Ox 99% on R/A; Weight 61.23 kg; ld1 Height 5 ft. 1 in. (154.94 cm); Pain 10/10; 15:43 BP 142 / 72; Pulse 86; Resp 18; Pulse Ox 97% on R/A; jl7 16:37 BP 179 / 105; Pulse 75; Resp 18; Pulse Ox 97% on R/A; ld1 17:49 BP 156 / 134; Pulse 88; Resp 18; Pulse Ox 98% on R/A; ld1 17:49 BP 187 / 90; Pulse 89; Resp 18; Pulse Ox 96% on R/A; ld1 19:30 BP 167 / 77; Pulse 65; Resp 18; Pulse Ox 98% on R/A; wh 21:00 BP 168 / 62; Pulse 65; Resp 18; Pulse Ox 97% on R/A; wh 14:01 Body Mass Index 25.51 (61.23 kg, 154.94 cm) ld1 MDM: 14:29 Patient medically screened. isabelle 15:05 Differential diagnosis: dislocation, closed fracture, tendonitis. Data reviewed: vital isabelle signs, nurses notes, lab test result(s), EKG, radiologic studies, CT scan, plain films. Data interpreted: monitor car operator: rate is 88 beats/min, rhythm is regular. Test interpretation: by ED physician or midlevel provider: ECG, plain radiologic studies. Counseling: I had a detailed discussion with the patient and/or guardian regarding: the historical points, exam findings, and any diagnostic results supporting the discharge/admit diagnosis, the presence of at least one elevated blood pressure reading (>120/80) during this emergency department visit, lab results, radiology results. 09/17 14:47 Order name: Basic Metabolic Panel [facility] 09/17 14:47 Order name: CBC with Diff [facility] 09/17 14:47 Order name: LFT's [facility] 09/17 14:47 Order name: Magnesium; Complete Time: 16:25 [facility] 09/17 14:47 Order name: NT PRO-BNP; Complete Time: 16:25 [facility] 09/17 14:47 Order name: PT-INR; Complete Time: 16:25 [facility] 09/17 14:47 Order name: Troponin (emerg Dept Use Only); Complete Time: 16:25 [facility] 09/17 14:47 Order name: Lipase; Complete Time: 16:25 [facility] 09/17 14:47 Order name: Basic Metabolic Panel; Complete Time: 16:25 [facility] 09/17 14:47 Order name: CBC with Automated Diff; Complete Time: 16:25 [facility] 09/17 14:47 Order name: Liver (Hepatic) Function; Complete Time: 16:25 [facility] 09/17 17:15 Order name: Urine Culture [facility] 09/17 17:15 Order name: Urine Culture [facility] 09/17 18:02 Order name: Urine Dipstick-Ancillary; Complete Time: 18:54 [facility] 09/17 14:47 Order name: XRAY Chest (1 view); Complete Time: 17:11 [facility] 09/17 14:47 Order name: US Extremity Venous W Compression Alexander; Complete Time: 16:25 [facility] 09/17 14:47 Order name: CT Aorta for Dissection; Complete Time: 17:11 [facility] 09/17 21:24 Order name: SARS-COV-2 RT PCR EDMT 09/18 00:19 Order name: Troponin I EDMT 09/18 00:19 Order name: T4 Free EDMT 09/18 00:19 Order name: Thyroid Stimulating Hormone EDMT 09/18 05:14 Order name: CBC with Automated Diff EDMT 09/18 05:32 Order name: Comprehensive Metabolic Panel EDMT 09/18 05:32 Order name: Phosphorus EDMT 09/18 05:33 Order name: Troponin I EDMT 09/18 05:33 Order name: Lipid Profile EDMT 09/18 05:33 Order name: Magnesium EDMT 09/18 08:46 Order name: Troponin I [facility] 09/18 11:58 Order name: Uric Acid [facility] 09/17 14:47 Order name: EKG; Complete Time: 14:48 [facility] 09/17 14:47 Order name: Cardiac monitoring; Complete Time: 16:49 [facility] 09/17 14:47 Order name: EKG - Nurse/Tech; Complete Time: 16:49 [facility] 09/17 14:47 Order name: IV Saline Lock; Complete Time: 15:30 [facility] 09/17 14:47 Order name: Labs collected and sent; Complete Time: 15:30 [facility] 09/17 14:47 Order name: O2 Per Protocol; Complete Time: 15:30 [facility] 09/17 14:47 Order name: O2 Sat Monitoring; Complete Time: 15:30 [facility] 09/17 14:47 Order name: Urine Dipstick-Ancillary (obtain specimen); Complete Time: 18:01 [facility] 09/17 15:07 Order name: Pelvis XRAY; Complete Time: 17:11 [facility] 09/17 21:11 Order name: CONS Physician Consult [facility] Administered Medications: 16:30 Drug: NS 0.9% 500 ml Route: IV; Rate: bolus; Site: right antecubital; ld1 16:57 Follow up: Response: No adverse reaction [facility] 09/18 00:50 Follow up: Response: No adverse reaction; IV Status: Completed infusion 09/17 16:30 Drug: morphine 2 mg Route: IVP; Site: right antecubital; ld1 16:57 Follow up: Response: No adverse reaction ld1 16:30 Drug: Zofran (Ondansetron) 4 mg Route: IVP; Site: right antecubital; ld1 16:57 Follow up: Response: No adverse reaction ld1 18:16 Drug: Eliquis (apixaban) 2.5 mg Route: PO; ld1 18:30 Follow up: Response: No adverse reaction ld1 18:16 Drug: Pepcid (famotidine) 20 mg Route: IVP; Site: right antecubital; ld1 18:30 Follow up: Response: No adverse reaction ld1 18:17 Drug: Rocephin (cefTRIAXone) 1 grams Route: IV; Rate: per protocol; Site: right ld1 antecubital; 18:30 Follow up: Response: No adverse reaction ld1 09/18 00:49 Follow up: Response: No adverse reaction; IV Status: Completed infusion 09/17 19:02 Drug: Eliquis (apixaban) 2.5 mg Route: PO; ld1 09/18 00:49 Follow up: Response: No adverse reaction 09/17 19:04 Drug: Lopressor (metoprolol TARTRATE) 50 mg Route: PO; ld1 09/18 00:49 Follow up: Response: No adverse reaction; Blood pressure is lowered 09/17 19:04 Drug: Aspirin 162 mg Route: PO; ld1 09/18 00:49 Follow up: Response: No adverse reaction 09/17 19:05 Drug: Lisinopril 10 mg Route: PO; ld1 09/18 00:49 Follow up: Response: No adverse reaction; Blood pressure is lowered Disposition: 09/17/20 17:20 Hospitalization ordered by Suad Gomez for Inpatient Admission. Preliminary diagnosis are Pain in right leg, Atrial fibrillation and flutter, Non-ST elevation (NSTEMI) myocardial infarction, Chronic vascular disorders of intestine, Unspecified combined systolic (congestive) and diastolic (congestive) heart failure - hx of, Urinary tract infection, site not specified, Essential (primary) hypertension. - Bed requested for [facility] ER HOLD. - Status is Inpatient Admission. tr6 - Condition is Fair. - Problem is new. - Symptoms have improved. Signatures: Dispatcher [employer] EDMT Asael Gifford MD MD cha Garcia, Cindy, RN SANJIV Anabel Nicole RN RN tw2 Meg Fairbanks RN RN ld1 Flakita Burnham RN RN tr6 Chava Lamas RN Corrections: (The following items were deleted from the chart) 09/17 18:55 17:20 Hospitalization Ordered by Suad Gomez MD for Inpatient Admission. Preliminary isabelle diagnosis is Pain in right leg; Atrial fibrillation and flutter; Non-ST elevation (NSTEMI) myocardial infarction; Chronic vascular disorders of intestine; Unspecified combined systolic (congestive) and diastolic (congestive) heart failure - hx of. Bed requested for Telemetry/MedSurg (Inpatient). Status is Inpatient Admission. Condition is Fair. Problem is new. Symptoms have improved. isabelle 20:36 20:10 CORONAVIRUS+MR.LAB.AJITZ ordered. [facility] EDMT 20:46 18:55 09/17/2020 17:20 Hospitalization Ordered by Suad Gomez MD for Inpatient cg Admission. Preliminary diagnosis is Pain in right leg; Atrial fibrillation and flutter; Non-ST elevation (NSTEMI) myocardial infarction; Chronic vascular disorders of intestine; Unspecified combined systolic (congestive) and diastolic (congestive) heart failure - hx of; Urinary tract infection, site not specified; Essential (primary) hypertension. Bed requested for Telemetry/MedSurg (Inpatient). Status is Inpatient Admission. Condition is Fair. Problem is new. Symptoms have improved. [facility] 09/18 16:46 [id number] 20:46 09/17/2020 17:20 Hospitalization Ordered by Suad Gomez MD for Inpatient tr6 Admission. Preliminary diagnosis is Pain in right leg; Atrial fibrillation and flutter; Non-ST elevation (NSTEMI) myocardial infarction; Chronic vascular disorders of intestine; Unspecified combined systolic (congestive) and diastolic (congestive) heart failure - hx of; Urinary tract infection, site not specified; Essential (primary) hypertension. Bed requested for [facility] ER HOLD. Status is Inpatient Admission. Condition is Fair. Problem is new. Symptoms have improved. cg
--- NOTE | 2020-09-17 17:20 | ER ---
Nurse's Notes [facility] Name: Marilin Cabral Age: 85 yrs Sex: Female : 1935 Arrival Date: 09/17/2020 Time: 11:33 Bed 20 Private MD: Diagnosis: Pain in right leg;Atrial fibrillation and flutter;Non-ST elevation (NSTEMI) myocardial infarction;Chronic vascular disorders of intestine;Unspecified combined systolic (congestive) and diastolic (congestive) heart failure-hx of;Urinary tract infection, site not specified;Essential (primary) hypertension Presentation: 09/17 12:08 Chief complaint: Patient states: yesterday i had a real bad pain on my RIGHT leg and tw2 yesterday my feet were swollen and it hurts all in my bones. i got osteoporosis. Coronavirus screen: At this time, the client does not indicate any symptoms associated with coronavirus-19. Ebola Screen: Patient denies travel to an Ebola-affected area in the 21 days before illness onset. Initial Sepsis Screen: Does the patient meet any 2 criteria? No. Patient's initial sepsis screen is negative. Initial Sepsis Screen: Does the patient have a suspected source of infection? No. Patient's initial sepsis screen is negative. Risk Assessment: Do you want to hurt yourself or someone else? Patient reports no desire to harm self or others. Onset of symptoms was September 17, 2020. 12:08 Method Of Arrival: Wheelchair tw2 12:08 Acuity: UNA 3 tw2 Triage Assessment: 12:09 General: Appears in no apparent distress. uncomfortable, obese, well groomed, Behavior tw2 is calm, cooperative, appropriate for age. Pain: Complains of pain in right leg. Historical: - Allergies: 12:10 No Known Allergies; tw2 - PMHx: 12:10 CHF; Hypertension; tw2 - Immunization history:: Adult Immunizations. - Social history:: Smoking status: . - Family history:: not pertinent. Screenin:01 Abuse screen: Denies threats or abuse. Denies injuries from another. Nutritional ld1 screening: No deficits noted. Tuberculosis screening: No symptoms or risk factors identified. Fall Risk None identified. Assessment: 14:01 General: Appears in no apparent distress. uncomfortable, Behavior is cooperative, ld1 appropriate for age, agitated. Pain: Complains of pain in left foot Pain currently is 10 out of 10 on a pain scale. Quality of pain is described as stabbing, tingling, numb, Pain began 1 day ago. Is continuous. Neuro: Level of Consciousness is awake, alert, obeys commands, Oriented to person, place, time, situation, Appropriate for age. Cardiovascular: Capillary refill < 3 seconds Patient's skin is warm and dry. Respiratory: Airway. Respiratory: Airway is patent Respiratory effort is even, unlabored, Respiratory pattern is regular, symmetrical. GI: Abdomen is flat, non-distended, Abd is soft Abdomen is tender to palpation X 4 quads. : No signs and/or symptoms were reported regarding the genitourinary system. EENT: No signs and/or symptoms were reported regarding the EENT system. Derm: No signs and/or symptoms reported regarding the dermatologic system. Musculoskeletal: No signs and/or symptoms reported regarding the musculoskeletal system. 14:33 Reassessment: ERP at bedside discussing POC. ld1 15:43 Reassessment: Patient and/or family updated on plan of care and expected duration. Pain jl7 level reassessed. Patient is alert, oriented x 3, equal unlabored respirations, skin warm/dry/pink. Pt waiting on results with daughter at bedside. 17:50 Reassessment: Patient and/or family updated on plan of care and expected duration. Pain ld1 level reassessed. Patient is alert, oriented x 3, equal unlabored respirations, skin warm/dry/pink. Patient laying in bed trying to rest, RR 17, denies concerns at this time. 18:35 Reassessment: Patient is alert, oriented x 3, equal unlabored respirations, skin ld1 warm/dry/pink. Patient is alert/active/playful, equal unlabored respirations, skin warm/dry/pink. Patient denies pain at this time. 19:30 Reassessment: Patient appears in no apparent distress at this time. Patient and/or wh family updated on plan of care and expected duration. Pain level reassessed. Patient is alert, oriented x 3, equal unlabored respirations, skin warm/dry/pink. 21:00 Reassessment: Patient appears in no apparent distress at this time. Patient and/or wh family updated on plan of care and expected duration. Pain level reassessed. Patient is alert, oriented x 3, equal unlabored respirations, skin warm/dry/pink. Vital Signs: 12:08 BP 113 / 101; Pulse 73; Resp 17; Temp 97.9(TE); Pulse Ox 97% on R/A; Weight 61.23 kg tw2 (R); 12:08 Height 5 ft. 1 in. (154.94 cm); tw2 12:11 BP 155 / 64; tw2 14:01 BP 154 / 88; Pulse 88; Resp 18; Temp 97.9(O); Pulse Ox 99% on R/A; Weight 61.23 kg; ld1 Height 5 ft. 1 in. (154.94 cm); Pain 10/10; 15:43 BP 142 / 72; Pulse 86; Resp 18; Pulse Ox 97% on R/A; jl7 16:37 BP 179 / 105; Pulse 75; Resp 18; Pulse Ox 97% on R/A; ld1 17:49 BP 156 / 134; Pulse 88; Resp 18; Pulse Ox 98% on R/A; ld1 17:49 BP 187 / 90; Pulse 89; Resp 18; Pulse Ox 96% on R/A; ld1 19:30 BP 167 / 77; Pulse 65; Resp 18; Pulse Ox 98% on R/A; wh 21:00 BP 168 / 62; Pulse 65; Resp 18; Pulse Ox 97% on R/A; wh 14:01 Body Mass Index 25.51 (61.23 kg, 154.94 cm) ld1 ED Course: 11:33 Patient arrived in ED. mr 12:09 Triage completed. tw2 12:09 Arm band placed on. tw2 13:52 Meg Fairbanks, RN is Primary Nurse. ld1 14:01 Patient has correct armband on for positive identification. Placed in gown. Bed in low ld1 position. Call light in reach. Side rails up X2. Pulse ox on. NIBP on. Door closed. Noise minimized. Warm blanket given. 14:01 No provider procedures requiring assistance completed. ld1 14:29 Asael Gifford MD is Attending Physician. isabelle 15:06 XRAY Chest (1 view) In Process Unspecified. EDMS 16:07 US Extremity Venous W Compression Alexander In Process Unspecified. EDMS 16:20 CT Aorta for Dissection In Process Unspecified. EDMS 16:43 Pelvis XRAY In Process Unspecified. EDMS 16:51 EKG done, by ED staff, reviewed by Asael Gifford MD. em1 17:17 Suad Gomez MD is Hospitalizing Provider. [facility] 18:01 Urine Culture Sent. ld1 21:00 Patient admitted, IV remains in place. 21:42 Primary Nurse role handed off by Meg Fairbanks RN tt3 09/18 00:47 Chava Lamas RN is Primary Nurse. 06:48 Primary Nurse role handed off by Chava Lamas RN tt3 Administered Medications: 09/17 16:30 Drug: NS 0.9% 500 ml Route: IV; Rate: bolus; Site: right antecubital; ld1 16:57 Follow up: Response: No adverse reaction ld1 09/18 00:50 Follow up: Response: No adverse reaction; IV Status: Completed infusion 09/17 16:30 Drug: morphine 2 mg Route: IVP; Site: right antecubital; ld1 16:57 Follow up: Response: No adverse reaction ld1 16:30 Drug: Zofran (Ondansetron) 4 mg Route: IVP; Site: right antecubital; ld1 16:57 Follow up: Response: No adverse reaction ld1 18:16 Drug: Eliquis (apixaban) 2.5 mg Route: PO; ld1 18:30 Follow up: Response: No adverse reaction ld1 18:16 Drug: Pepcid (famotidine) 20 mg Route: IVP; Site: right antecubital; ld1 18:30 Follow up: Response: No adverse reaction ld1 18:17 Drug: Rocephin (cefTRIAXone) 1 grams Route: IV; Rate: per protocol; Site: right ld1 antecubital; 18:30 Follow up: Response: No adverse reaction ld1 09/18 00:49 Follow up: Response: No adverse reaction; IV Status: Completed infusion 09/17 19:02 Drug: Eliquis (apixaban) 2.5 mg Route: PO; ld1 09/18 00:49 Follow up: Response: No adverse reaction 09/17 19:04 Drug: Lopressor (metoprolol TARTRATE) 50 mg Route: PO; ld1 09/18 00:49 Follow up: Response: No adverse reaction; Blood pressure is lowered 09/17 19:04 Drug: Aspirin 162 mg Route: PO; ld1 09/18 00:49 Follow up: Response: No adverse reaction 09/17 19:05 Drug: Lisinopril 10 mg Route: PO; ld1 09/18 00:49 Follow up: Response: No adverse reaction; Blood pressure is lowered Outcome: 09/17 17:20 Decision to Hospitalize by Provider. [facility] 21:00 Admitted to ER Hold. Please see [facility] for further documentation. 21:00 Condition: stable 21:00 Instructed on the need for admit. 09/18 16:46 Patient left the ED. tr6 Signatures: Dispatcher [employer] EDMS Asael Gifford MD MD cha Rivera, Farida Michele Paiz em1 Anabel Nicole, RN RN tw2 Lubna Arzola RN RN jl7 Chava Lamas RN RN Addi Mascorro 3 Meg Fairbanks RN RN ld1 Flakita Burnham RN RN tr6
[2020-09-17 18:02] LABS: Urine Blood Trace-lysed (Negative); Urine Glucose Negative (Negative); Urine Protein Negative (Negative); Urine Specific Gravity 1.015 (1.005-1.030); Urine pH 6.5 (5.0-7.0)
[2020-09-17] MEDS ORDERED: APIXABAN 5 MG TABLET ONE ×2 (18:24→19:18)
[2020-09-17] MEDS ORDERED: FAMOTIDINE 20 MG/2 ML VIAL IV ONE (18:24)
[2020-09-17] MEDS ORDERED: CEFTRIAXONE 1000 MG/VIAL ONE (18:25)
[2020-09-17] MEDS ORDERED: CEFTRIAXONE/SWI 1gm 1 GM/10 ML SYR ONE (18:26)
[2020-09-17] MEDS ORDERED: ASPIRIN 81 MG CHEWABLE TABLET ONE (19:18)
[2020-09-17] MEDS ORDERED: METOPROLOL TAR 50 MG TAB ONE (19:18)
[2020-09-17] MEDS ORDERED: lisinopriL 10 MG TAB ONE (19:19)
[2020-09-17] MEDS ORDERED: ACETAMINOPHEN 500 MG TAB PO PRN (22:39)
[2020-09-17] MEDS ORDERED: MORPHINE 2 MG/ML SYR IV PRN (22:39)
[2020-09-17] MEDS ORDERED: ONDANSETRON 4 MG/2 ML VIAL IV PRN (22:39)
[2020-09-17] MEDS ORDERED: HYDRALAZINE HCL 20 MG/ML VIAL IV PRN (22:39)
[2020-09-18 00:19] LABS: Thyroid Stimulating Hormone 0.962 uIU/mL (0.360-3.740); Troponin I 0.14 ng/mL (0.0-0.045)
--- NOTE | 2020-09-18 01:37 | P.HP ---
Certification for Inpatient Patient admitted to: Observation With expected LOS: <2 Midnights Patient will require the following post-hospital care: None Practitioner: I am a practitioner with admitting privileges, knowledge of patient current condition, hospital course, and medical plan of care. Services: Services provided to patient in accordance with Admission requirements found in Title 42 Section 412.3 of the Code of Federal Regulations Patient History Date of Service: 09/17/20 Primary Care Provider: none Reason for admission: R leg pain History of Present Illness: Ms. Cabral is an 85 yo F with CHF, HTN, afib, osteoporosis, OA, history of NSTEMI 12/2019 here today for R leg pain beginning two days ago. She denies fall or trauma. She reports swelling in her thigh and numbness and tingling in her feet. Pain is worse with walking and not relieved with ice, OTC pena relievers. Denies chest pain, SOB. Xray of the pelvis and venous doppler of the LE wnl. Trop 0.14. BNP 4004. Allergies No Known Allergies Allergy (Verified 01/09/20 23:07) Home Medications: Apixaban [Eliquis *] 2.5 mg PO BID 01/10/20 Atorvastatin Calcium 40 mg PO BEDTIME 01/10/20 Calcium Carbonate [Calcium] 500 mg PO DAILY 01/10/20 Clopidogrel Bisulfate [Plavix*] 75 mg PO DAILY 01/10/20 Furosemide [Lasix] 40 mg PO BIDL 01/10/20 Isosorbide Mononitrate [Isosorbide Mononitrate ER] 30 mg PO DAILY 01/10/20 Lisinopril [Zestril] 20 mg PO DAILY 01/10/20 Metoprolol Succinate [Toprol Xl*] 25 mg PO BID 01/10/20 Nitroglycerin [Nitrostat*] 0.4 mg SL SEECOM PRN 01/10/20 Tramadol HCl [Ultram] 50 mg PO Q6HP PRN 01/10/20 Pregabalin [Lyrica*] 75 mg PO BID #60 cap 01/12/20 traMADol HCL [Ultram*] 50 mg PO Q6HP PRN #30 tab 01/12/20 - Past Medical/Surgical History Diabetic: No -: CHF -: HTN -: osteoporosis, OA -: NSTEMI -: afib -: Hysterectomy -: Benign abdominal tumors -: Laparoscopic cholecystectomy Psychosocial/ Personal History: Lives at home with nephew - Family History Mother -: Cancer Father -: Lung disease Notes: tuberculosis Brother -: Cancer, Seizures - Social History Smoking Status: Never smoker Alcohol use: No CD- Drugs: No Caffeine use: Yes Place of Residence: Home Review of Systems General: Unremarkable Eyes: Unremarkable ENT: Unremarkable Respiratory: Unremarkable Cardiovascular: Unremarkable Gastrointestinal: Unremarkable Genitourinary: Unremarkable Musculoskeletal: Leg Pain Integumentary: Unremarkable Neurological: Unremarkable Lymphatics: Unremarkable Physical Examination - Physical Exam General: Alert, In no apparent distress, Oriented x3, Cooperative HEENT: Atraumatic, Normocephalic, PERRLA, Mucous membr. moist/pink, EOMI, Sclerae nonicteric Neck: Supple, 2+ carotid pulse no bruit, JVD not distended, No Thyromegaly, No LAD Respiratory: Clear to auscultation bilaterally, Normal air movement Cardiovascular: No edema, Normal pulses, Regular rate/rhythm, Normal S1 S2, No gallops, No rubs, No murmurs Capillary refill: <2 Seconds Gastrointestinal: Normal bowel sounds, Soft and benign, Non-distended, No ascites, No tenderness, No masses, No rebound, No guarding Musculoskeletal: No clubbing, No swelling, No contractures, No erythema, No warmth, Tenderness Integumentary: No rashes, No breakdown, No significant lesion, No tenderness/swelling, No erythema, No warmth, No cyanosis Neurological: Normal speech, Normal tone, Sensation intact, Cranial nerves 3-12 intact, Normal affect, Abnormal gait, Abnormal strength Lymphatics: No axilla or inguinal lymphadenopathy - Studies Laboratory Data (last 24 hrs) 09/17/20 14:59: PT 12.0, INR 1.04 09/17/20 14:59: WBC 8.20, Hgb 13.0, Hct 39.2, Plt Count 255 09/17/20 14:59: Sodium 142, Potassium 3.9, BUN 12, Creatinine 0.88, Glucose 91, Magnesium 2.3, Total Bilirubin 0.6, AST 24, ALT 22, Alkaline Phosphatase 137 H, Lipase 137 Assessment and Plan - Problems (Diagnosis) (1) A-fib Current Visit: Yes Status: Chronic Qualifiers: Atrial fibrillation type: unspecified Qualified Code(s): I48.91 - Unspecified atrial fibrillation (2) CHF (congestive heart failure) Current Visit: Yes Status: Chronic Qualifiers: Heart failure type: unspecified Heart failure chronicity: chronic Qualified Code(s): I50.9 - Heart failure, unspecified (3) HTN (hypertension) Current Visit: Yes Status: Chronic Qualifiers: Hypertension type: essential hypertension Qualified Code(s): I10 - Essential (primary) hypertension (4) Right leg pain Current Visit: Yes Status: Acute (5) Non-STEMI (non-ST elevated myocardial infarction) Current Visit: No Status: Chronic - Plan cardiology consulted trend troponins and EKG restart home medications monitor BP, on telemetry pain management as needed Discharge Plan: Home Plan to discharge in: 24 Hours - Advance Directives Does patient have a Living Will: Yes Does patient have a Durable POA for Healthcare: No - Code Status/Comfort Care Code Status Assessed: Yes (full code) Critical Care: No Time Spent Managing Pts Care (In Minutes): 70
[2020-09-18 01:46] VITALS: BMI 24.7
[2020-09-18 04:30] VITALS: TEMP 97.6
[2020-09-18 05:07] LABS: Absolute Lymphocytes (CBC) 1.5 K/uL (0.7-4.9); Basophils % 0.9 % (0-1.3); Hematocrit 33.4 % (36.0-45.0); MPV 8.8 fL (7.6-11.3); RBC Red Blood Cell Count 3.84 M/uL (3.86-4.86)
[2020-09-18 05:32] LABS: Bilirubin Total 0.5 mg/dL (0.2-1.0); Magnesium 2.2 mg/dL (1.8-2.4); Phosphorus 3.4 mg/dL (2.5-4.9); Potassium 4.1 mmol/L (3.5-5.1); Protein, Total 6.7 g/dL (6.4-8.2); Troponin I 0.12 ng/mL (0.0-0.045)
[2020-09-18] MEDS ORDERED: PNEUMOCOCCAL VACCINE 0.5 ML IMVAC ONE (08:00)
[2020-09-18] MEDS ORDERED: APIXABAN 2.5 MG TABLET PO SCH (09:00)
[2020-09-18] MEDS ORDERED: ENOXAPARIN 40 MG/0.4 ML SQ SCH (09:00)
[2020-09-18 10:35] VITALS: O2SAT 97
[2020-09-18] MEDS ORDERED: TRAMADOL HCL 50 MG TAB PO PRN (11:11)
--- NOTE | 2020-09-18 14:54 | P.DS ---
Admission Date: 09/17/20 Discharge Date: 09/18/20 Primary Care Provider: none Disposition: DC HOME/HOME HEALTH CARE Discharge Condition: FAIR Reason for Admission: R leg pain - Problems (1) Chronic diastolic (congestive) heart failure Current Visit: Yes Status: Acute (2) Elevated troponin Current Visit: Yes Status: Acute (3) Right leg pain Current Visit: Yes Status: Acute (4) A-fib Current Visit: Yes Status: Chronic Qualifiers: Atrial fibrillation type: unspecified Qualified Code(s): I48.91 - Unspecified atrial fibrillation Brief History of Present Illness: 85 yo F with a history of CHF, HTN, afib, osteoporosis, OA, history of NSTEMI 12/2019 presented with R leg pain of two days duration. No her initial troponin is elevated to 0.14. BNP 4004. Patient hospitalized for further management. Hospital Course: Patient placed under observation. Troponin trended flat. Patient had no chest or shortness of breath. She appeared compensated for CHF. She was specific alert complaining of right knee pain which is chronic. Uric acid checked was negative. Patient seen by cardiology due to elevated troponin and considered to be stable for discharge. No changes made in her home medications except addition of Voltaren cream for topical analgesia. She will follow with Dr. Newell in the office. Vital Signs/Physical Exam: Temp Pulse Resp BP Pulse Ox 97.6 F 63 18 155/62 H 100 09/18/20 04:00 09/18/20 11:28 09/18/20 11:28 09/18/20 11:28 09/18/20 11:28 General: Alert, In no apparent distress, Oriented x3 HEENT: Mucous membr. moist/pink Neck: JVD not distended Respiratory: Clear to auscultation bilaterally, Normal air movement Cardiovascular: No edema, Regular rate/rhythm, Normal S1 S2 Gastrointestinal: Normal bowel sounds, Soft and benign, Non-distended, No tenderness Musculoskeletal: Swelling (Mild swelling of right knee, nontender to palpation.) Integumentary: No rashes Neurological: Normal strength at 5/5 x4 extr, Cranial nerves 3-12 intact Laboratory Data at Discharge: WBC 7.50 K/uL (4.3-10.9) 09/18/20 04:55 Hgb 11.2 g/dL (12.0-15.0) L 09/18/20 04:55 Hct 33.4 % (36.0-45.0) L 09/18/20 04:55 Plt Count 199 K/uL (152-406) D 09/18/20 04:55 PT 12.0 SECONDS (9.5-12.5) 09/17/20 14:59 INR 1.04 09/17/20 14:59 Sodium 140 mmol/L (136-145) 09/18/20 04:55 Potassium 4.1 mmol/L (3.5-5.1) 09/18/20 04:55 BUN 12 mg/dL (7-18) 09/18/20 04:55 Creatinine 0.76 mg/dL (0.55-1.3) 09/18/20 04:55 Glucose 80 mg/dL (74-106) 09/18/20 04:55 Uric Acid 5.5 mg/dL (2.6-6.0) 09/18/20 11:39 Phosphorus 3.4 mg/dL (2.5-4.9) 09/18/20 04:55 Magnesium 2.2 mg/dL (1.8-2.4) 09/18/20 04:55 Total Bilirubin 0.5 mg/dL (0.2-1.0) 09/18/20 04:55 AST 19 U/L (15-37) 09/18/20 04:55 ALT 17 U/L (12-78) 09/18/20 04:55 Alkaline Phosphatase 116 U/L (45-117) 09/18/20 04:55 Troponin I 0.14 ng/mL (0.0-0.045) H 09/18/20 08:15 Triglycerides 60 mg/dL (<150) 09/18/20 04:55 Cholesterol 135 mg/dL (<200) 09/18/20 04:55 HDL Cholesterol 55 mg/dL (40-60) 09/18/20 04:55 Cholesterol/HDL Ratio 2.45 09/18/20 04:55 Lipase 137 U/L (73-393) 09/17/20 14:59 Home Medications: Apixaban [Eliquis *] 2.5 mg PO BID 01/10/20 Atorvastatin Calcium 40 mg PO BEDTIME 01/10/20 Calcium Carbonate [Calcium] 500 mg PO DAILY 01/10/20 Clopidogrel Bisulfate [Plavix*] 75 mg PO DAILY 01/10/20 Furosemide [Lasix] 40 mg PO BIDL 01/10/20 Isosorbide Mononitrate [Isosorbide Mononitrate ER] 30 mg PO DAILY 01/10/20 Lisinopril [Zestril] 20 mg PO DAILY 01/10/20 Metoprolol Succinate [Toprol Xl*] 25 mg PO BID 01/10/20 Nitroglycerin [Nitrostat*] 0.4 mg SL SEECOM PRN 01/10/20 Tramadol HCl [Ultram] 50 mg PO Q6HP PRN 01/10/20 Pregabalin [Lyrica*] 75 mg PO BID #60 cap 01/12/20 traMADol HCL [Ultram*] 50 mg PO Q6HP PRN #30 tab 01/12/20 Diclofenac Sodium [Voltaren Arthritis Pain] 1 appl TP QID #150 gel..gram. 09/18/20 New Medications: Diclofenac Sodium [Voltaren Arthritis Pain] 1 appl TP QID #150 gel..gram. Diet: AHA Activity: Ad ericka Followup: NONE,NONE [Primary Care Provider] -
[2020-09-18 15:15] VITALS: BP 135/40
[2020-09-18] MEDS ORDERED: FUROSEMIDE 40 MG TABLET PO SCH (17:00)
[2020-09-18] MEDS ORDERED: METOPROLOL XL 25 MG TAB PO SCH (21:00)
[2020-09-18] MEDS ORDERED: PREGABALIN 75 MG CAP PO SCH (21:00)
[2020-09-18] MEDS ORDERED: ATORVASTATIN 40 MG TAB PO SCH (21:00)
--- NOTE | 2020-09-19 07:24 | EKG ---
Test Date: 2020-09-17 Test Time: 16:37:21 Analysis Reporting Developer: ANGELIA MEASUREMENT RESULTS: Intervals: Rate: 78 IN: QRSD: 84 QT: 388 QTc: 442 [place]: P: IN: QRS: 33 T: 245 INTERPRETIVE STATEMENTS: Atrial fibrillation with a competing junctional pacemaker Possible Inferior infarct, age undetermined ST & T wave abnormality, consider anterolateral ischemia Abnormal ECG Compared to ECG 01/09/2020 18:32:56 ST (T wave) deviation now present Possible ischemia now present Sinus rhythm no longer present Atrial premature complex(es) no longer present Left ventricular hypertrophy no longer present Early repolarization no longer present Myocardial infarct finding still present Electronically Signed On 09-19-20 07:18:36 CDT by Arik Newell
[2020-09-19] MEDS ORDERED: CLOPIDOGREL 75 MG TABLET PO SCH (09:00)
[2020-09-19] MEDS ORDERED: lisinopriL 20 MG TAB PO SCH (09:00)
[2020-09-19] MEDS ORDERED: ISOSORBIDE MONO SR 30 MG TAB PO SCH (09:00)
--- NOTE | 2020-09-21 20:13 | CON ---
Date of Consultation: 09/18/2020 I saw the patient on 09/18/2020. Reason For Consultation: Atrial fibrillation and elevated troponin. History Of Present Illness: Ms. Cabral is an 85-year-old woman, who really came into the emergency room with leg pain. She has a history of congestive heart failure and hypertension. Her pain was o n the lateral aspect of the right thigh, right knee, and right calf. She denies any chest pain. Den ies any nausea, vomiting, diaphoresis, PND, orthopnea, pedal edema, palpitation, or syncope. She was noted to be in atrial fibrillation. Allergies: NONE. Past Medical History: Congestive heart failure and hypertension. Review of Systems: Negative. Social History: Negative. Family History: Noncontributory. Medications: At home include Eliquis, Lipitor, Plavix, Lasix, Imdur, Zestril, metoprolol, Lyrica. Physical Examination: Vital Signs: Stable. She was afebrile. She was in atrial fibrillation at a rate of 61. HEENT: Negative. Neck: Supple with no bruit. Chest: Clear to auscultation and percussion. Cardiac: Revealed a regular rhythm and rate. No murmurs, gallops or rubs. Abdomen: Benign. Extremities: Revealed no clubbing, cyanosis, or edema. Diagnostic Data: Basically she had one EKG with normal rhythm and one EKG with atrial fibrillation. Troponin was 0.12. BNP was 4004. Impression And Plan: 1.The patient with chronic atrial fibrillation on Eliquis, rate control. She is also on beta-blocke r. Elevated troponin and BNP are definitely secondary to atrial fibrillation, chronic congestive hea rt failure that is diastolic and chronic hypertension. The patient does not have any chest pain. I see no reason to do any cardiac catheterization on her at this point. She has no cardiac symptoms. Her main problem is leg pain, which is most likely musculoskeletal or related to a sciatica. This is not a PAD story. 2.Her other problems include hypertension, well controlled. 3.Congestive heart failure, chronic diastolic, well controlled. 4.Her other problems include history of coronary artery disease that is stable. 5.Dyslipidemia that is stable. 6.Hypertension that is stable. 7.She has neuropathy for which she takes Lyrica. I would not change any of her medical regimen. He r leg workup would be up to Dr. Méndez. I think she can go home whenever it is okay with him and I w ill see her in the office in the near future. I would like to state that she has been had a venous D oppler that was negative. EFREN/KASEY Voice ID: [id number] Report ID: [id number]
== END 2020-09-18 16:23 | disposition home or self-care (01) ==
LOC: ER 11:26 → ERHOLD 21:09
PROVIDERS: ADMIT Internal Medicine; ATTEND Internal Medicine
DX: M79.604 Pain in right leg (principal); I11.0 Hypertensive heart disease with heart failure; I50.32 Chronic diastolic (congestive) heart failure; R77.8 Other specified abnormalities of plasma proteins; I48.91 Unspecified atrial fibrillation; Z20.822 Contact with and (suspected) exposure to COVID-19; M81.0 Age-related osteoporosis without current pathological fracture; M19.90 Unspecified osteoarthritis, unspecified site; I25.2 Old myocardial infarction; R94.31 Abnormal electrocardiogram [ECG] [EKG]
CPT/HCPCS: 36415; 71045; 71275; 72170; 74175; 80048; 80053; 80061; 80076; 81003; 83690; 83735; 83880; 84100; 84439; 84443; 84484; 84550; 85025; 85610; 87086; 87088; 93005; 93970; 94760; 96361; 96365; 96366; 96375; 97116; 97161; 99285; G0378; J0696; J2270; J2405; J7040; Q9967; U0003